=== PATIENT | female | born 1975 | race Caucasian/White ===

== ENCOUNTER 2020-10-31 14:53 | Emergency (ER) | payer SELFPAY ==
[2020-10-31 14:54] VITALS: BP 112/75; PULSE 84; RESP 16; TEMP 36.9; O2SAT 98; BMI 25.1
--- NOTE | 2020-10-31 15:11 | CT_ITS ---
WS: [id number] CT ABDOMEN AND PELVIS WITH CONTRAST HISTORY: diffuse abdominal pain, guarding TECHNIQUE: Imaging performed of the abdomen and pelvis with IV contrast. Single phase imaging of the abdomen. Coronal and sagittal reformats are submitted. All CT scans at [facility] use at least one of these dose optimization techniques: automated exposure control; mA and/or kV adjustment per patient size (includes targeted exams where dose is matched to clinical indication); or iterativ e reconstruction. IV CONTRAST: Omnipaque 300; 95 mL IV. Oral contrast: No DLP: 435.23 mGy.cm COMPARISON: None available. Lower thorax: Lung bases are clear. Heart is normal size. No hiatal hernia. Liver/biliary system: Normal size with no intrahepatic dilatation. Gallbladder: Status post cholecystectomy. Pancreas: Normal. Spleen: Normal. Adrenal glands: Normal. Right kidney: Normal. Left kidney: Normal. Aorta: Mild atherosclerosis with no aneurysm. Lymphadenopathy: None. Free fluid: None. GI tract: Prior appendectomy. There is no GI tract obstruction. Mild diffuse constipation. Abdominal wall: There is a defect within the ventral abdominal wall just above the umbilicus. The benoit fice of the hernia measures 1.7 cm transversely. The omental fat herniating through the defect contai ns thin reticulations and stranding but no fluid. Pelvis: Well-distended bladder. No free fluid. Prior hysterectomy. LEFT ovarian cyst measures 3.0 x 2 .7 cm. Bones: Unremarkable. CT/CT abdomen pelvis w con* [id number] IMPRESSION: 1. Supraumbilical hernia contains herniated omentum. Acute inflammatory change s within the herniated omentum, suspect there is ongoing inflammation or mild i schemic change. Typically this is self limiting. No herniated GI tract. 2. Prior cholecystectomy and appendectomy. 3. LEFT ovarian cyst 3.0 cm.
--- NOTE | 2020-10-31 15:11 | W.ED.ABDPA2 ---
HPI - Abdominal Pain General: Chief Complaint: Abdominal Pain Stated Complaint: ABD PAIN Time Seen by Provider: 10/31/20 14:57 Source: patient Mode of arrival: EMS Limitations: no limitations History of Present Illness: HPI narrative: Patient is a 45-year-old female who presents to ED today with a complaint of severe abdominal pain that initially started approximately 3 days ago and has worsened over that time period. She is complaining of nausea without vomiting. She has not noticed any changes to her bowel movements. She is complaining of painful urination. She does endorse flank pain when asked. No documented fevers but states she has had chills. Previous abdominal surgeries include appendectomy, cholecystectomy, partial hysterectomy. Denies vaginal bleeding, vaginal discharge, vaginal odor. MD elicited complaint: abdominal pain Onset (ago): day(s) Pain Consistency: constant Location: Diffuse and Periumbilical Severity: severe Radiation: none Migration to: no migration Relieving factors: nothing Associated Symptoms: Reports chills, dysuria and nausea; Denies change in bowel habits, change in stool character, constipation, diarrhea, fever(s), hematochezia, hematuria, hematemesis, melena, syncope and vomiting Related Data: Patient : No Review of Systems Const: Reports: chills; Denies: fever(s), body aches, fatigue or malaise ENMT: Denies: throat pain or odynophagia Card: Denies: chest pain, lightheadedness, syncope or pre-syncope Resp: Denies: dyspnea GI: Reports: abdominal pain and nausea; Denies: vomiting, hematemesis, diarrhea, constipation, change in bowel habits, change in stool character, hematochezia, melena or white/light colored stool : Reports: flank pain and dysuria; Denies: difficulty voiding, urinary frequency, urinary urgency, urinary hesitancy, hematuria, vaginal odor, vaginal bleeding or vaginal discharge Musc: Denies: neck pain or back pain Skin/Breast: Denies: rash Neuro: Denies: headache(s), numbness in extremities, weakness in extremities, sensory changes or dizziness Physical Exam Const: COMMON NORMALS: average body habitus, patient oriented x3, no limitations, healthy appearing, alert and well nourished GENERAL APPEARANCE: cooperative and in distress (in pain) ORIENTATION/CONSCIOUSNESS: Yes awake, Yes oriented to person, Yes oriented to place and Yes oriented to time HENMT: COMMON NORMALS: normocephalic and atraumatic HEAD & SCALP: normocephalic and atraumatic Resp: COMMON NORMALS: normal respiratory effort and clear to auscultation bilaterally AUSCULTATION: clear to auscultation bilaterally Cardio: COMMON NORMALS: regular rate and regular rhythm RATE: regular rate RHYTHM: regular rhythm GI: COMMON NORMALS: Normal to inspection, nondistended, normoactive bowel sounds present, No hepatosplenomegaly present and no masses INSPECTION: Yes normal to inspection AUSCULTATION: Yes normoactive bowel sounds PALPATION: Yes Tenderness to palpation present (GI) (diffuse), Yes Guarding due to palpation present (GI) (diffuse) and Yes No hepatosplenomegaly present : BLADDER/KIDNEY EXAM: Yes CVA tenderness bilateral Back/Pelvis: GENERAL BACK: Yes CVA tenderness Extremity: GENERAL: Yes normal exam except as noted Neuro: GIANCARLO COMA SCALE: document GCS findings Giancarlo coma scale eye opening: Spontaneous [place] coma scale verbal response: Orientated Giancarlo coma scale motor response: Obey commands [place] coma scale total score: 15 COMMON NORMALS: patient oriented x3 SENSORIUM/ORIENTATION: Yes alert, Yes oriented to person, Yes oriented to place and Yes oriented to time Skin: COMMON NORMALS: no rashes or lesions noted GENERAL SKIN EXAM: no rashes or lesions noted Course Consultations: Consultation #1: Dr. Medel-will see in office on Thursday Vital Signs: Vital signs: Vital Signs Temperature 98.5 F 10/31/20 14:54 Pulse Rate 69 10/31/20 15:59 Respiratory Rate 14 10/31/20 15:59 Blood Pressure 130/81 10/31/20 15:59 Pulse Oximetry 100 10/31/20 15:59 MDM - Abdominal Pain MDM Narrative: Medical decision making narrative: Patient here with complaints of abdominal pain over the past 3 days. On exam she is diffusely tender but more so to her periumbilical region where a hernia is palpated. She states hernia has been present over the past 2 years and is never been reducible. CT shows herniated omentum. Patient is not tachycardic or febrile. She has a normal white count. Lactate is normal. I have spoken to general surgery who will see patient on Thursday. On patient's UA she was noted to have trichomonas. Patient does not complain of pelvic pain, vaginal discharge, vaginal odor or itching. She has no evidence for PID at this time. Patient does not want pelvic exam/swabs. Strict return to ED precautions were given regarding patient's hernia. Patient also noted to be hyperglycemic with a blood glucose of 325. Patient states she chronically runs in the 200s. She has no evidence for DKA. Lab Data: Labs: Lab Results 10/31/20 10/31/20 10/31/20 Range/Units 15:00 15:00 15:00 WBC 9.3 (4.0-10.0) 10^3/ uL RBC 5.05 (4.1-5.3) 10^6/u L Hgb 15.3 (11.5-15.3) g/dL Hct 45.5 (37.0-47.0) % MCV 90.1 (81-99) fL MCH 30.3 (28.0-34.0) pg MCHC 33.6 (30.0-36.0) g/dL RDW 11.9 L (12.1-15.1) % Plt Count 285 (130-400) 10^3/c mm MPV 10.7 H (7.4-10.4) fL Neut % (Auto) 65.4 % Lymph % (Auto) 25.0 % [place] % (Auto) 7.3 % Eos % (Auto) 1.2 % Baso % (Auto) 0.6 % Neut # (Auto) 6.09 (1.8-7.7) 10^3/u L Lymph # (Auto) 2.3 (0.8-4.8) 10^3/u L [place] # (Auto) 0.7 (0.2-0.9) 10^3/u L Eos # (Auto) 0.1 (0.0-0.8) 10^3/u L Baso # (Auto) 0.1 (0.0-0.1) 10^3/u L Nucleated RBC % (a uto) 0 % Nucleated RBCs # 0.0 /100WBC Specimen Type Sample Site ABG pH (7.35-7.45) ABG pCO2 (35-45) mmHg ABG pO2 (80.0-100.0) mmH g ABG HCO3 (22-26) mmol/L ABG O2 Saturation ABG Base Excess (-2.0-2.0) mmol/ L Marcial Test A-a O2 Gradient (5-10) mmHg Hematocrit (37-47) % Hgb O2 Saturation (95-100) % Carboxyhemoglobin (0.4-20.1) %THgb Methemoglobin (0.4-1.5) % Total Hemoglobin (12-16) g/dL Ionized Calcium (1.1-1.4) mmol/L O2 Delivery Device FiO2 % Recruitment Consultant ID Sodium 133 L (136-145) mmol/L Potassium 4.7 (3.5-5.1) mmol/L Chloride 97 L (98-107) mmol/L Carbon Dioxide 26 (22-29) mmol/L Anion Gap 14.7 (5-19) BUN 13 (6-20) mg/dL Creatinine 0.6 (0.5-0.9) mg/dL GFR Calculation 108.1 (90-130) mL/min Glucose 325 H (65-115) mg/dL Calculated Osmolal ity 289 (285-295) mOsm/k g Lactic Acid (0.5-2.2) mmol/L Calcium 10.2 (8.5-10.5) mg/dL Total Bilirubin 0.4 (0.15-1.2) mg/dL AST 12 (0-32) U/L ALT 13 (0-33) U/L Alkaline Phosphata se 105 (35-105) IU/L Total Protein 7.7 (6.6-8.7) g/dL Albumin 4.3 (3.5-5.2) g/dL Globulin 3.4 (1.3-4.6) g/dL Lipase 14 (13-60) U/L HCG, Qual Negative (Negative) Urine Color (Yellow) Urine Appearance (CLEAR) Urine pH (5-7) Ur Specific Gravit y (1.005-1.030) Urine Protein (Negative) Urine Glucose (UA) (Normal) Urine Ketones (Negative) Urine Blood (Negative) Urine Nitrate (Negative) Urine Bilirubin (Negative) Urine Urobilinogen (Negative) mg/dL Ur Leukocyte Sada ase (Negative) Urine RBC (0-2) /hpf Urine WBC (0-5) /hpf Ur Squamous Epith Cells (0-5) /hpf Amorphous Sediment Urine Bacteria (NONE) /hpf Urine Trichomonas /hpf Serum Ketones (Negative) 10/31/20 10/31/20 10/31/20 Range/Units 15:40 15:58 15:58 WBC (4.0-10.0) 10^3/ uL RBC (4.1-5.3) 10^6/u L Hgb (11.5-15.3) g/dL Hct (37.0-47.0) % MCV (81-99) fL MCH (28.0-34.0) pg MCHC (30.0-36.0) g/dL RDW (12.1-15.1) % Plt Count (130-400) 10^3/c mm MPV (7.4-10.4) fL Neut % (Auto) % Lymph % (Auto) % [place] % (Auto) % Eos % (Auto) % Baso % (Auto) % Neut # (Auto) (1.8-7.7) 10^3/u L Lymph # (Auto) (0.8-4.8) 10^3/u L [place] # (Auto) (0.2-0.9) 10^3/u L Eos # (Auto) (0.0-0.8) 10^3/u L Baso # (Auto) (0.0-0.1) 10^3/u L Nucleated RBC % (a uto) % Nucleated RBCs # /100WBC Specimen Type Sample Site ABG pH (7.35-7.45) ABG pCO2 (35-45) mmHg ABG pO2 (80.0-100.0) mmH g ABG HCO3 (22-26) mmol/L ABG O2 Saturation ABG Base Excess (-2.0-2.0) mmol/ L Marcial Test A-a O2 Gradient (5-10) mmHg Hematocrit (37-47) % Hgb O2 Saturation (95-100) % Carboxyhemoglobin (0.4-20.1) %THgb Methemoglobin (0.4-1.5) % Total Hemoglobin (12-16) g/dL Ionized Calcium (1.1-1.4) mmol/L O2 Delivery Device FiO2 % Recruitment Consultant ID Sodium (136-145) mmol/L Potassium (3.5-5.1) mmol/L Chloride (98-107) mmol/L Carbon Dioxide (22-29) mmol/L Anion Gap (5-19) BUN (6-20) mg/dL Creatinine (0.5-0.9) mg/dL GFR Calculation (90-130) mL/min Glucose (65-115) mg/dL Calculated Osmolal ity (285-295) mOsm/k g Lactic Acid 1.0 (0.5-2.2) mmol/L Calcium (8.5-10.5) mg/dL Total Bilirubin (0.15-1.2) mg/dL AST (0-32) U/L ALT (0-33) U/L Alkaline Phosphata se (35-105) IU/L Total Protein (6.6-8.7) g/dL Albumin (3.5-5.2) g/dL Globulin (1.3-4.6) g/dL Lipase (13-60) U/L HCG, Qual (Negative) Urine Color Straw (Yellow) Urine Appearance Sl hazy (CLEAR) Urine pH 6.5 (5-7) Ur Specific Gravit y 1.010 (1.005-1.030) Urine Protein Neg (Negative) Urine Glucose (UA) 4+ H (Normal) Urine Ketones Negative (Negative) Urine Blood Trace H (Negative) Urine Nitrate Negative (Negative) Urine Bilirubin Neg (Negative) Urine Urobilinogen Norm (Negative) mg/dL Ur Leukocyte Sada ase Negative (Negative) Urine RBC 5-10 H (0-2) /hpf Urine WBC 0-4 H (0-5) /hpf Ur Squamous Epith Cells 0-4 H (0-5) /hpf Amorphous Sediment Not Reportable Urine Bacteria 4+ H (NONE) /hpf Urine Trichomonas 1+ H /hpf Serum Ketones Negative (Negative) 10/31/20 Range/Units 16:03 WBC (4.0-10.0) 10^3/ uL RBC (4.1-5.3) 10^6/u L Hgb (11.5-15.3) g/dL Hct (37.0-47.0) % MCV (81-99) fL MCH (28.0-34.0) pg MCHC (30.0-36.0) g/dL RDW (12.1-15.1) % Plt Count (130-400) 10^3/c mm MPV (7.4-10.4) fL Neut % (Auto) % Lymph % (Auto) % [place] % (Auto) % Eos % (Auto) % Baso % (Auto) % Neut # (Auto) (1.8-7.7) 10^3/u L Lymph # (Auto) (0.8-4.8) 10^3/u L [place] # (Auto) (0.2-0.9) 10^3/u L Eos # (Auto) (0.0-0.8) 10^3/u L Baso # (Auto) (0.0-0.1) 10^3/u L Nucleated RBC % (a uto) % Nucleated RBCs # /100WBC Specimen Type Arterial Sample Site Brachial, right ABG pH 7.37 (7.35-7.45) ABG pCO2 43.2 (35-45) mmHg ABG pO2 76.7 L (80.0-100.0) mmH g ABG HCO3 25.0 (22-26) mmol/L ABG O2 Saturation 96.4 ABG Base Excess -0.4 (-2.0-2.0) mmol/ L Marcial Test Pos A-a O2 Gradient 2.5 L (5-10) mmHg Hematocrit 40.8 (37-47) % Hgb O2 Saturation 88.5 L (95-100) % Carboxyhemoglobin 7.3 (0.4-20.1) %THgb Methemoglobin 0.9 (0.4-1.5) % Total Hemoglobin 13.3 (12-16) g/dL Ionized Calcium 1.2 (1.1-1.4) mmol/L O2 Delivery Device Room air FiO2 21.0 % Recruitment Consultant ID [place] Sodium 135.0 (136-145) mmol/L Potassium 4.2 (3.5-5.1) mmol/L Chloride (98-107) mmol/L Carbon Dioxide (22-29) mmol/L Anion Gap (5-19) BUN (6-20) mg/dL Creatinine (0.5-0.9) mg/dL GFR Calculation (90-130) mL/min Glucose 247.0 H (65-115) mg/dL Calculated Osmolal ity (285-295) mOsm/k g Lactic Acid (0.5-2.2) mmol/L Calcium (8.5-10.5) mg/dL Total Bilirubin (0.15-1.2) mg/dL AST (0-32) U/L ALT (0-33) U/L Alkaline Phosphata se (35-105) IU/L Total Protein (6.6-8.7) g/dL Albumin (3.5-5.2) g/dL Globulin (1.3-4.6) g/dL Lipase (13-60) U/L HCG, Qual (Negative) Urine Color (Yellow) Urine Appearance (CLEAR) Urine pH (5-7) Ur Specific Gravit y (1.005-1.030) Urine Protein (Negative) Urine Glucose (UA) (Normal) Urine Ketones (Negative) Urine Blood (Negative) Urine Nitrate (Negative) Urine Bilirubin (Negative) Urine Urobilinogen (Negative) mg/dL Ur Leukocyte Sada ase (Negative) Urine RBC (0-2) /hpf Urine WBC (0-5) /hpf Ur Squamous Epith Cells (0-5) /hpf Amorphous Sediment Urine Bacteria (NONE) /hpf Urine Trichomonas /hpf Serum Ketones (Negative) Imaging Data ^: CT Abd/Pel: Radiologist's impression: [place] [address] CT Scan Report Signed Patient: Kari Pires Unit #: [id number] : 1975 Age/Sex: 45 / F ADM Date: 10/31/20 Loc: ER Room/Bed: Attending Dr: Ordering Provider/Ordering MD: Yamini Story Date of Service: 10/31/20 Procedure(s): CT abdomen pelvis w con* [id number] Accession Number(s): [id number] Report Number: [id number] WS: [id number] CT ABDOMEN AND PELVIS WITH CONTRAST HISTORY: diffuse abdominal pain, guarding TECHNIQUE: Imaging performed of the abdomen and pelvis with IV contrast. Single phase imaging of the abdomen. Coronal and sagittal reformats are submitted. All CT scans at [facility] use at least one of these dose optimization techniques: automated exposure control; mA and/or kV adjustment per patient size (includes targeted exams where dose is matched to clinical indication); or iterative reconstruction. IV CONTRAST: Omnipaque 300; 95 mL IV. Oral contrast: No DLP: 435.23 mGy.cm COMPARISON: None available. Lower thorax: Lung bases are clear. Heart is normal size. No hiatal hernia. Liver/biliary system: Normal size with no intrahepatic dilatation. Gallbladder: Status post cholecystectomy. Pancreas: Normal. Spleen: Normal. Adrenal glands: Normal. Right kidney: Normal. Left kidney: Normal. Aorta: Mild atherosclerosis with no aneurysm. Lymphadenopathy: None. Free fluid: None. GI tract: Prior appendectomy. There is no GI tract obstruction. Mild diffuse constipation. Abdominal wall: There is a defect within the ventral abdominal wall just above the umbilicus. The orifice of the hernia measures 1.7 cm transversely. The omental fat herniating through the defect contains thin reticulations and stranding but no fluid. Pelvis: Well-distended bladder. No free fluid. Prior hysterectomy. LEFT ovarian cyst measures 3.0 x 2.7 cm. Bones: Unremarkable. CT/CT abdomen pelvis w con* [id number] IMPRESSION: 1. Supraumbilical hernia contains herniated omentum. Acute inflammatory changes within the herniated omentum, suspect there is ongoing inflammation or mild ischemic change. Typically this is self limiting. No herniated GI tract. 2. Prior cholecystectomy and appendectomy. 3. LEFT ovarian cyst 3.0 cm. Dictated By: Bee Gayle DO Signed By: Bee Gayle DO Signed Date/Time: 10/31/20 1535 DD/ 1528 Discharge Plan Discharge Patient Disposition: Home Clinical Impression: Trichomonas vaginitis Umbilical hernia Qualifiers: Obstruction and gangrene presence: without obstruction or gangrene Qualified Code(s): K42.9 - Umbilical hernia without obstruction or gangrene Uncontrolled diabetes mellitus Qualifiers: Diabetes mellitus type: type 2 Glycemic state: with hyperglycemia Qualified Code(s): E11.65 - Type 2 diabetes mellitus with hyperglycemia Condition: Stable Prescriptions: New hydrocodone-acetaminophen 5-325 mg tablet 1 tab PO Q6H PRN (Reason: pain) Qty: 20 RF: 0 Zofran 4 mg tablet 4 mg PO Q6H PRN (Reason: nausea and vomiting) Qty: 14 RF: 0 Flagyl 500 mg tablet 500 mg PO BID 7 Days Qty: 14 RF: 0 No Action Prozac 40 mg Capsule 40 mg PO QAM RF: 0 aspirin 325 mg Tablet 325 mg PO QAM RF: 0 clonazepam 1 mg Tablet 1 mg PO BID PRN (Reason: Anxiety) RF: 0 lisinopril 10 mg Tablet 10 mg PO QAM RF: 0 metoprolol tartrate 50 mg Tablet 50 mg PO QAM RF: 0 Lantus Solostar U-100 Insulin 100 unit/mL (3 mL) Insulin Pen 20 unit SUBCUT QAM RF: 0 Discharge Orders: Discharge ED (Routine); Ordered 10/31/20 Ordered By: Yamini Story Referrals: Yuri Medel MD [Physician] - Patient Instructions: Umbilical Hernia (ED), Trichomoniasis - Female Activity Restrictions/Additional Instructions: As discussed case management should contact you tomorrow to set you up with your appointment with Dr. Medel/general surgery on Thursday for evaluation of your hernia. You need to return to the emergency department immediately for worsening or severe pain, vomiting, inability to pass stool or gas, fevers, or any other concerns you may have. As we discussed your urine showed trichomonas which is a sexually transmitted infection. You have been given medication to clear this infection. You need to abstain from sexual activity until treatment is complete. Any sexual partners need to be tested and treated at this time as well. Coding Level of Care Code ED [employer] Supervisor for Rosemarie Fwestefany Exam Comprehensive
[2020-10-31 15:16] LABS: Basophils # 0.1 10^3/uL (0.0-0.1); Basophils % 0.6 %; Eosinophils # 0.1 10^3/uL (0.0-0.8); Eosinophils % 1.2 %; Hematocrit 45.5 % (37.0-47.0); Hemoglobin 15.3 g/dL (11.5-15.3); Lymphocytes # 2.3 10^3/uL (0.8-4.8); Mean Corpuscular HGB Conc 33.6 g/dL (30.0-36.0); Mean Corpuscular Hemoglobin 30.3 pg (28.0-34.0); Mean Corpuscular Volume 90.1 fL (81-99); Mean Platelet Volume 10.7 fL (7.4-10.4); Monocytes # 0.7 10^3/uL (0.2-0.9); Monocytes % 7.3 %; Neutrophils # 6.09 10^3/uL (1.8-7.7); Neutrophils % 65.4 %; Nucleated Red Blood Cells % 0 %; Platelet Count 285 10^3/cmm (130-400); Red Blood Count 5.05 10^6/uL (4.1-5.3); Red Cell Distribution Width 11.9 % (12.1-15.1); White Blood Count 9.3 10^3/uL (4.0-10.0)
[2020-10-31] MEDS: iohexol 300 mg/mL 100 mL Btl IV (15:25)
[2020-10-31 15:40] LABS: Alanine Aminotransferase 13 U/L (0-33); Albumin Level 4.3 g/dL (3.5-5.2); Alkaline Phosphatase 105 IU/L (35-105); Anion Gap 14.7 (5-19); Aspartate Amino Transferase 12 U/L (0-32); Blood Urea Nitrogen 13 mg/dL (6-20); Calcium 10.2 mg/dL (8.5-10.5); Carbon Dioxide 26 mmol/L (22-29); Chloride 97 mmol/L (98-107); Globulin 3.4 g/dL (1.3-4.6); Glomerular Filtration Rate 108.1 mL/min (90-130); Glucose 325 mg/dL (65-115); Lipase 14 U/L (13-60); Osmolality Calculated 289 mOsm/kg (285-295); Potassium 4.7 mmol/L (3.5-5.1); Sodium 133 mmol/L (136-145); Total Bilirubin 0.4 mg/dL (0.15-1.2); Total Protein 7.7 g/dL (6.6-8.7)
[2020-10-31] MEDS: morphine 4 mg/mL SDV 1 mL IVP (15:40)
[2020-10-31] MEDS: ondansetron 2 mg/ML SDV 2 mL 4 MG IVP (15:40)
[2020-10-31 15:43] LABS: HCG, Serum Qual Negative (Negative)
--- NOTE | 2020-10-31 15:43 | PC.PHAR ---
pt states she takes lantus 20 units qam-pt states her dad [facility] and uses the same as him so she has been using his insulin-pt states she has clonazepam and only takes prn-pt states she has maybe taken 2 tab this week
[2020-10-31 15:59] VITALS: BP 130/81; PULSE 69; RESP 14; O2SAT 100
[2020-10-31 16:10] LABS: Urine Appearance SL Hazy (CLEAR); Urine Color Straw (Yellow); pH Urine 6.5 (5-7)
[2020-10-31 16:11] LABS: Add Urine Microscopic? YES; Bilirubin Urine Neg (Negative); Blood Urine Trace (Negative); Glucose Urine UA 4+ (Normal); Ketones Urine Negative (Negative); Leukocyte Esterase Urine Negative (Negative); Nitrate Urine Negative (Negative); Protein Urine Neg (Negative); Urobilinogen Urine Norm (Negative)
[2020-10-31 16:17] LABS: ABG PCO2 43.2 mmHg (35-45); ABG PH Result 7.37 (7.35-7.45); Alveolar-Arterial Oxygen Gradi 2.5 mmHg (5-10); Arterial Blood Gas Hematocrit 40.8 % (37-47); Base Excess ABG -0.4 mmol/L (-2.0-2.0); Blood Gas Allen Test Pos; Blood Gas Operator Identificat MONRO; Blood Gas Sample Site Brachial, right; Blood Gas Sample Type Arterial; Carboxyhemoglobin 7.3 %THgb (0.4-20.1); HGB O2 Sat 88.5 % (95-100); Ionized Calcium Level - ABG 1.2 mmol/L (1.1-1.4); Methemoglobin 0.9 % (0.4-1.5); Oxygen Device ROOM AIR; Oxygen Saturation ABG 96.4; PO2 ABG 76.7 mmHg (80.0-100.0); Potassium Level - ABG 4.2 mmol/L (3.5-5.0); Total Hemoglobin 13.3 g/dL (12-16)
[2020-10-31 16:29] LABS: Bacteria Urine 4+ /hpf; Squamous Epithelial Cell Urine 0-4 /hpf (0-5); Trichomonas Urine 1+ /hpf; WBC Urine 0-4 /hpf (0-5)
[2020-10-31 16:31] LABS: Add Urine Culture? Yes
[2020-10-31 16:41] LABS: Ketone (Acetest) Serum Negative (Negative)
--- NOTE | 2020-11-01 09:47 | DCPLANNER ---
manager search engine had message to schedule a follow up appointment for patient with general surgery. manager search engine emailed patients information to both Wanda and Greta at [facility] General Surgery. Patients information will be printed and reviewed. Clinic will call patient with appointment information.
--- NOTE | 2020-11-06 12:57 | DCPLANNER ---
Patient has follow up appointment on 11/06/[address] Medel
--- NOTE | 2020-11-29 07:59 | DCPLANNER ---
Patient had a follow up appointment scheduled with Dr. Medel at [facility] General Surgery - patient did attend appointment.
== END 2020-10-31 17:19 | disposition home or self-care (01) ==
PROVIDERS: Emergency Provider Physician Assistant
DX: K42.9 Umbilical hernia without obstruction or gangrene (principal); E11.65 Type 2 diabetes mellitus with hyperglycemia; A59.01 Trichomonal vulvovaginitis
CPT/HCPCS: 12345; 36415; 36600; 74177; 80051; 80053; 81001; 82009; 82330; 82805; 83605; 83690; 84703; 85025; 87077; 87086; 87186; 96361; 96374; 96375; 99282; 99283; J2270; J2405; Q9967

== ENCOUNTER → 2020-11-09 09:41 | Outpatient (BNVA) | payer SELFPAY | PROVIDERS: Referring Provider Surgery; Visit Provider Surgery | DX: Z01.812 Encounter for preprocedural laboratory examination (principal); K42.9 Umbilical hernia without obstruction or gangrene | CPT/HCPCS: 87635 ==

== ENCOUNTER 2020-11-14 06:10 | Day surgery (SDC) | payer SELFPAY ==
[2020-11-13 12:50] VITALS: BMI 24.7
[2020-11-14] VITALS (9 sets, daily range): BP systolic 105–151; BP diastolic 57–89; PULSE 58–90; RESP 12–18; TEMP 36.2–36.3; O2SAT 97–100
--- NOTE | 2020-11-14 06:38 | ANES.PREANE2 ---
Pre-Anesthetic Assessment Pre-Anesthetic Assessment: Height/Weight: Height 1.6 m Weight 63.503 kg Temp Pulse Resp BP Pulse Ox 97.3 F L 58 L 16 106/66 99 11/14/20 06:25 11/14/20 06:25 11/14/20 06:25 11/14/20 06:25 11/14/20 06:25 Preop Diagnosis: Umbilical hernia Proposed Procedure: Operation Date: 11/14/20 07:00 Proposed Procedures p Umbilical Hernia Repair w/ Mesh 38465 K42.9(Not Applicable) - Yuri Medel MD Familial anesthetic complications: None Was Beta Sindy taken within 24 hours: Yes Last intake: Intake Last Liquid Date 11/13/20 Last Liquid Time 23:55 Last Solid Date 11/13/20 Last Solid Time 22:00 Social: Social History: Tobacco and No alcohol Exam: Pre-Anes Outpt Exam: alert, oriented x 3, clear to auscultation bilaterally and regular rate & rhythm Airway: Cervical ROM: WNL MP: 3 Dentition: Loose (back bottom tooth - pt educated on risk of dislodgement w/ intbuation) CV/HEM: CV/HEM: HTN Metabolic: Metabolic: DM Anesthetic Plan: ASA status: 3 Anesthesia: General PFSH Anesthesia PFSH: Medical History (Updated 11/08/20 @ 00:00 by ) Anxiety and depression HTN (hypertension), benign IDDM (insulin dependent diabetes mellitus) Surgical History (Updated 11/02/20 @ 10:25 by Yuri Medel MD) History of appendectomy History of laparoscopic cholecystectomy History of partial hysterectomy Data Anesthesia Cardiac Studies: No Data to Display
[2020-11-14] MEDS: sodium chloride 0.9% 1,000 ML 30 ML IV (06:59)
[2020-11-14 07:00] LABS: Glucose Point of Care 212 mg/dL (70-110)
[2020-11-14] MEDS: insulin regular-human 100 units/1 mL 10 UNIT IVP (07:17)
--- NOTE | 2020-11-14 07:27 | W.PM.OPSUD ---
Surgery/Procedure H&P Update DATE OF PROCEDURE: November 14, 2020 DATE H&P PERFORMED: 11/02/20 H&P UPDATE INFORMATION: I have reviewed H&P completed within last 30 days, I have examined patient prior to procedure and No changes to prior documentation PREOP DIAGNOSIS: Umbilical hernia PLANNED PROCEDURE: Operation Date: 11/14/20 07:00 Proposed Procedures p Umbilical Hernia Repair w/ Mesh [id number] K42.9(Not Applicable) - Yuri Medel MD
--- NOTE | 2020-11-14 08:22 | P.PCN_ITS ---
PACU note PACU note: VSS, Good respiratory effort, report to DEPARTMENT CHAIRPERSON Post-Anesthesia Exam: awake
--- NOTE | 2020-11-14 08:22 | PM.PACU ---
PACU note PACU note: VSS, Good respiratory effort, report to INSTALLATION TECHNICIAN Post-Anesthesia Exam: awake
[2020-11-14] MEDS: fentaNYL 50 mcg/mL INJ 2mL IVP (08:23)
[2020-11-14 08:34] LABS: Glucose Point of Care 92 mg/dL (70-110)
[2020-11-14] MEDS: HYDROcodone-acetaminophen 5-325 mg Tablet 1 TAB PO (09:01)
--- NOTE | 2020-11-14 11:49 | PM.OP ---
Operative Report Date of procedure: November 14, 2020 Pre-op Diagnosis: Incarcerated incisional hernia containing omentum Post-op diagnosis: same Procedure Done: Open primary repair of incarcerated incisional hernia Pathology: Hernia sac and omentum Surgeon: Yuri Medel Anesthesia: General Condition: stable Disposition: PACU Procedure: The patient was taken to the operating room and intubated under general anesthesia after IV antibiotic had been administered. The abdomen was prepped and draped in a sterile manner. A 3 cm transverse incision was made superior to the umbilicus using a 15 blade, a hernial sac dissected out using electrocautery and hemostats. The hernial sac was opened and omentum was reduced into the peritoneal cavity. The hernia sac and part of the omentum was excised. Interrupted sutures using 0 Vicryl was used to close the hernial defect without any tension. The subcutaneous tissue was approximated using 3-0 Vicryl and skin was closed using running subcuticular 4-0 Monocryl sutures. Surgical glue was applied and 10 mL of 0.5% Marcaine was infiltrated around the incision. The patient was stable throughout the procedure.
--- NOTE | 2020-11-14 20:02 | ANE.PACU2 ---
Inpatient post-anesthesia follow up: Airway intact: Yes Vital signs: Temperature 97.1 F Pulse Rate 63 Respiratory Rate 16 Blood Pressure 105/57 Pulse Oximetry 100 Oxygen Delivery Me thod Room Air Oxygen Flow Rate Fraction of Inspir ed Oxygen Hydration adequate: Yes Nausea and vomiting: No Pain level: 3 Mental status: Baseline
== END 2020-11-14 09:19 | disposition home or self-care (01) ==
PROVIDERS: Visit Provider Surgery
PROC: (CPT 49561; principal; 2020-11-14 07:00)
DX: K43.0 Incisional hernia with obstruction, without gangrene (principal); I10 Essential (primary) hypertension; E11.9 Type 2 diabetes mellitus without complications; Z79.82 Long term (current) use of aspirin; Z79.4 Long term (current) use of insulin
CPT/HCPCS: 49561; 36416; 82962; 88302; 96365; 96374; J0690; J1815; J2405; J2704; J2710; J3010; J3490; J7030

== ENCOUNTER → 2020-12-05 10:15 | Outpatient (BNVA) | payer SELFPAY | PROVIDERS: PCP Family Medicine; Visit Provider Emergency Medicine | DX: E11.9 Type 2 diabetes mellitus without complications (principal) | CPT/HCPCS: 36416; 80053; 80061; 82962; 83036; 84443; 85025 ==

== ENCOUNTER → 2021-06-27 16:05 | Outpatient (BNVA) | payer MEDICAID, SELFPAY | PROVIDERS: PCP Family Medicine; Visit Provider Internal Medicine | DX: M79.2 Neuralgia and neuritis, unspecified (principal); E11.9 Type 2 diabetes mellitus without complications | CPT/HCPCS: 82607; 82746; 83516; 83550; 84681; 85651; 86140; 86160; 86162; 86225; 86235; 86255; 86376 ==

== ENCOUNTER → 2021-08-14 15:52 | Outpatient (BNVA) | payer MEDICAID, SELFPAY | PROVIDERS: PCP Family Medicine; Visit Provider Internal Medicine | DX: R20.0 Anesthesia of skin (principal) | CPT/HCPCS: 82607; 82746; 83550; 84443 ==

== ENCOUNTER → 2022-06-17 15:02 | Outpatient (BNVA) | payer BC, MEDICAID, SELFPAY | PROVIDERS: PCP Family Medicine; Visit Provider Internal Medicine | DX: R53.83 Other fatigue (principal); M79.2 Neuralgia and neuritis, unspecified; E13.9 Other specified diabetes mellitus without complications; Z79.899 Other long term (current) drug therapy; Z79.4 Long term (current) use of insulin; F17.210 Nicotine dependence, cigarettes, uncomplicated | CPT/HCPCS: 80053; 82550; 83036; 83550; 84443; 85651; 86140 ==

== ENCOUNTER → 2023-04-23 10:06 | Outpatient (BNVA) | payer BC, MEDICAID, SELFPAY | PROVIDERS: PCP Family Medicine; Visit Provider Student in an Organized Health Care Education/Training Program | DX: G56.03 Carpal tunnel syndrome, bilateral upper limbs (principal); M65.311 Trigger thumb, right thumb | CPT/HCPCS: 73130 ==

== ENCOUNTER 2023-05-18 05:45 | Day surgery (SDC) | payer BC, MEDICAID, SELFPAY ==
[2023-05-18] VITALS (7 sets, daily range): BP systolic 100–128; BP diastolic 64–94; PULSE 80–96; RESP 16–18; TEMP 36.1–36.4; O2SAT 98–100
[2023-05-18] MEDS: sodium chloride 0.9% 1,000 ML 30 ML IV (06:28)
[2023-05-18] MEDS: ketorolac 30 mg/mL INJ IVP (06:29)
[2023-05-18] MEDS: acetaminophen 1,000 MG/100 ML PIGGYBACK 400 MG IV (06:29)
[2023-05-18 06:33] LABS: Glucose Point of Care 154 mg/dL (70-110)
[2023-05-18 06:49] LABS: Anion Gap 15.2 (5-19); Blood Urea Nitrogen 16 mg/dL (6-20); Calcium 9.9 mg/dL (8.5-10.5); Carbon Dioxide 24 mmol/L (22-29); Chloride 103 mmol/L (98-107); Glomerular Filtration Rate 107.2 mL/min (90-130); Glucose 140 mg/dL (65-115); Osmolality Calculated 289 mOsm/kg (285-295); Potassium 4.2 mmol/L (3.5-5.1); Sodium 138 mmol/L (136-145)
--- NOTE | 2023-05-18 06:53 | W.PM.OPSUD ---
Surgery/Procedure H&P Update DATE OF PROCEDURE: May 18, 2023 DATE H&P PERFORMED: 04/23/23 CHANGES TO PREVIOUS DOCUMENTATION: None. No change in HPI from office visit on 04/23/2023. Patient has right carpal tunnel syndrome right trigger thumb. Plan to proceed with surgical intervention all questions answered at this time she understands the risk benefits complication alternatives with surgery and agrees to proceed. All questions answered. PREOP DIAGNOSIS: right Carpal Tunnel syndrome, right thumb trigger PRIMARY INDICATION FOR PROCEDURE: Right carpal tunnel syndrome, right trigger thumb PLANNED PROCEDURE: Operation Date: 05/18/23 07:00 Proposed Procedures p Carpal Tunnel Release/Right Trigger thumb release 09075 ,[id number], G56.03 M65.311(Right) - Yimi Gonzales DO s Trigger Finger Release(Right) - Yimi Gonzales DO
[2023-05-18] MEDS: ceFAZolin 2,000 MG in sodium chloride 0.9% (plus) 50 ML 100 MG IV (07:00)
[2023-05-18] MEDS: ROPivacaine 0.5% SDV 30 mL 50 MG INJECTION (07:10)
[2023-05-18] MEDS: lidocaine-epi 1% 20 mL INJ 5 ML INJECTION (07:10)
--- NOTE | 2023-05-18 08:01 | PM.OP2 ---
Brief Operative Note Date of procedure: 05/18/23 Pre-op diagnosis: Right carpal tunnel syndrome and right trigger thumb Post-op diagnosis: same Procedure Done: Right carpal tunnel release and right trigger thumb release Surgeon: Yimi Gonzales Estimated blood loss (mL): 5 Complications: none Post-op Plan: Orthopedic discharge instructions: Keep dressing clean dry and intact Leave on for 72 hours after surgery, after that may remove dressings clean incision with warm soapy water, pat dry and redress with a dry dressing. No baths or soaks Weightbearing as tolerated to the operative hand Encourage hand and finger range of motion as tolerated Ice and elevate as needed for pain and swelling Take pain medication as prescribed Take antinausea medication as needed Follow-up with Dr. Gonzales in the office in 2 weeks Contact the office for any questions or concerns Condition: stable Disposition: PACU Coding Level of Care Code Acute Code for Rosemarie Nation
--- NOTE | 2023-05-18 08:02 | P.ANESASSM_ITS ---
Pre-Anesthetic Assessment Height/Weight: Height 1.6 m Weight 81.647 kg Temp Pulse Resp BP Pulse Ox O2 Del Method 97.5 F L 88 18 112/75 98 Room Air 05/18/23 06:10 05/18/23 06:10 05/18/23 06:10 05/18/23 06:10 05/18/23 06:10 05/18/23 06:06 Preop Diagnosis: right Carpal Tunnel syndrome, right thumb trigger Operation Date: 05/18/23 07:00 Proposed Procedures p Carpal Tunnel Release/Right Trigger thumb release 83278 ,25992, G56.03 M65.311(Right) - Yimi Christian, DO s Trigger Finger Release(Right) - Yimi Gonzales DO Familial anesthetic complications: none Was Beta Sindy taken within 24 hours: N/A Was Clonidine taken within 24 hours: N/A Last intake: Intake Last Liquid Date 05/17/23 Last Liquid Time 22:00 Last Solid Date 05/17/23 Last Solid Time 22:00 Social Tobacco and No alcohol Exam alert, oriented x 3 and regular rate & rhythm Airway Submandibular: within normal limits Cervical ROM: within normal limits Mallampati: Class II Dentition: chipped Metabolic Diabetes Mellitus and Morbid Obesity Neuropsych Anxiety and Depression Anesthetic Plan ASA status: 3 Anesthesia: Choice Medications/Allergies Home Medications Medication Instructions Recorded Confirmed Last Taken Type aspirin 325 mg tablet 325 mg PO QAM 10/31/20 05/18/23 05/16/23 History insulin glargine 100 unit/mL (3 20 unit (0.2 mL) SUBCUT BID #15 mL 06/17/22 05/18/23 05/17/23 Rx mL) subcutaneous pen (Lantus Solostar U-100 Insulin) insulin aspart U-100 100 unit/mL 10 unit (0.1 mL) SUBCUT TID #15 mL 06/18/22 05/18/23 05/17/23 Rx (3 mL) subcutaneous pen (Novolog FlexPen U-100 Insulin aspart) fluoxetine 40 mg capsule (Prozac) 40 mg PO QAM #30 caps 08/26/22 05/18/23 05/16/23 Rx Diabetic shoes with 3 sets of #1 ea 03/23/23 05/04/23 Unknown Rx insoles ondansetron 4 mg disintegrating 4 mg PO DAILY PRN nausea and 05/18/23 Unknown Rx tablet vomiting 3 days #9 tabs tramadol 50 mg tablet 50 mg PO Q6H PRN pain #20 tabs 05/18/23 Unknown Rx Allergies Allergy/AdvReac Type Severity Reaction Status Date / Time hydrocodone Allergy ALGY-Rash Verified 05/15/23 12:52 Current Medications Generic Name Dose Route Start Last Admin Trade Name Bryant PRN Reason Stop Dose Admin Sodium Chloride 1,000 mls @ 30 mls/hr 05/18/23 06:00 05/18/23 06:28 Sodium Chloride 0.9% IV 05/19/23 05:59 30 mls/hr .Q24H DAVID Administration PFSH Anesthesia Medical History Anxiety and depression Diabetes HTN (hypertension), benign IDDM (insulin dependent diabetes mellitus) Major depressive disorder, recurrent, in full remission Nicotine dependence, cigarettes, uncomplicated Obsessive-compulsive disorder, unspecified Psychiatric care Surgical History History of appendectomy History of laparoscopic cholecystectomy History of partial hysterectomy History of umbilical hernia repair (11/14/20) Social History Smoking and tobacco status: current every day smoker cigarettes Packs smoked per day: 0.5 Years cigarettes smoked: 27 Quit status (tobacco): has tried quititng Number of times tried to quit tobacco: 1 Second hand smoke exposure: Yes Smoking risk assessment/counseling performed?: Yes (risks and benefits discussed/ refused need for TTS at this time) Alcohol intake: current Alcohol intake frequency: few times a month Alcohol type: beer Desire information about alcohol rehabilitation?: No Counseling given: No Reason alcohol counseling not done: not indicated Substance/Drug Use: never Adopted: No Caregiver/support person: No Lives independently: No Household members: spouse and other 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, 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, 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: House Marital status: Number of children: 1 Number of grandchildren: 0 Highest education level completed: Some College, No Degree service: No Current occupational status: unemployed Current occupational exposures/hazards: No Pets and animals: Yes Pets & animals: dog(s) Leisure activites: fishing and other Leisure activities details: swim,crafts Sexually active: No Do you think of yourself as: Straight/Heterosexual Current gender identity: Female Luanne/Sabianism: Shinto Special luanne needs: No Agree to transfusion: Yes Financial difficulty paying for basics: Not Very Hard Female Reproductive History Para: 1 Data Anesthesia 05/18/23 06:24 BMP 05/18/23 06:24 Sodium 138 Potassium 4.2 Chloride 103 Carbon Dioxide 24 BUN 16 Creatinine 0.6 Glucose 140 H Calcium 9.9 Cardiac Studies: No Data to Display
--- NOTE | 2023-05-18 08:04 | PM.PACU ---
PACU note Narrative: Patient is a 47-year-old female just underwent a right carpal tunnel release right trigger thumb release. Patient transferred to PACU in stable condition. Pain is well controlled. Dressing on hand is dry and in place. Patient has good perfusion to her fingers and is able to move fingers. Patient has normal elbow range of motion. Unable to assess sensation due to localized anesthetic. Exam: awake Disposition: discharged
--- NOTE | 2023-05-18 09:00 | PM.OP ---
Operative Report Date of procedure: May 18, 2023 Pre-op diagnosis: Preop Diagnosis right Carpal Tunnel syndrome, right thumb trigger Procedure: Post-op diagnosis: Same Procedure done: 1.?Right carpal tunnel?release 2. Right trigger thumb release Surgeon: Yimi Gonzales DO Anesthesia: MAC (Local) Estimated blood loss: [?2]mL Tourniquet time [14 ]minutes IV fluids: See anesthesia?record Complications: None Findings: See operative?report narrative Condition: stable Disposition: same day Brief History: Patient is a pleasant [?47 ]year-old [F ] with?right carpal tunnel syndrome and right thumb trigger.? Patient has been worked up in the outpatient setting findings and physical examination consistent with this.? Patient nerve conduction studies consistent with carpal tunnel syndrome. Patient's failed conservative treatment for trigger thumb and would like to have this addressed while having her carpal tunnel release.? We detailed out patient's?risk benefits complication alternatives with surgical and nonsurgical treatment options. Through shared decision making, patient agrees to proceed with surgical intervention ? Patient understands and agrees with current plan.? All questions answered.? Procedure: Patient seen and evaluated in the preoperative holding area.? Consent was?reviewed and signed with patient.? Correct extremity was marked.? Patient was seen evaluated by the anesthesia department once cleared for surgery was brought back to the operative suite.? [facility] in supine position all bony prominences were well-padded patient properly secured to the bed.??Right upper extremity was then placed onto an armboard.? A nonsterile tourniquet was applied to the?RIght upper arm.? Patient underwent anesthesia per the anesthesia department.? Patient's?Right upper extremity was then prepped and draped in standard orthopedic fashion.? Final timeout performed.? Patient?received appropriate preoperative antibiotics. Under sterile aseptic technique patient?received local anesthesia over the preplanned carpal tunnel incision site and right trigger thumb incision site Esmarch was used to exsanguinate the?Right upper extremity and tourniquet was insufflated to 250 mmHg. I started with the trigger thumb release. I identified patient's MP flexion crease marked appropriate incision transversely across the flexion crease within Alena's lines sharp scalpel incision was made only through skin.? Once this was done I switched to Littler dissection scissors this I then subsequently spread longitudinally in the planes of the digital nerves.? Once these were identified these were protected by my respiratory care assistant with Kasdan retractors.? Next I identified directly over the A1 ronak of the right thumb.? This was significantly thickened and identified to be the area of patient's thumb?triggering.? I used sharp scalpel to incise the A1 ronak and then utilized my respiratory care assistant to retract the ability and under loupe magnification released the entirety of the A1 ronak both proximally and distally up to the oblique ronak.? This point time the tendon was then inspected and found to be healthy there was some inflammation around the tendon itself but no evidence of tearing and no need for any debridement.? The Ragnell was used to pull the tendon out of the incision and there was no mechanical?triggering I then took the patient's thumb through range of motion no recurrent?triggering was noted.? I then had anesthesia wake patient up from anesthesia and was able to have him follow commands patient was able to make a flex thumb and extend with no evidence of triggering. Patient was then placed back to MAC anesthesia. I then thoroughly irrigated the incision site and placed a wet Ray-Mirta in the incision line proceeded with carpal tunnel release. A standard mini open?Right carpal tunnel incision was made.? Starting distally at Clark's cardinal line in line with the fourth?ray extending proximally distal to the wrist crease centered over the carpal tunnel.? Sharp scalpel incision was made through skin and subcutaneous tissue.? Self-retaining?retractor was placed and the palmar fascia was identified.? This was then split longitudinally and direct visualization of the transverse carpal ligament was then made.? I then utilizing scalpel feathered through the transverse carpal ligament until I entered the floor of the transverse carpal tunnel ligament into the carpal tunnel.? Next I switched to dissection scissors and completed my?release of the transverse carpal ligament distally with care to protect the?recurrent motor branch.? I completely?released into the palmar fat and until no entrapment was noted distally.? Care was made to protect the superficial palmar arch during my distal dissection.?? Next I utilized a nasal speculum placed on top of the transverse carpal ligament and utilize this to?retract the subcutaneous fat and tissue and under direct loupe magnification was able to identify the transverse carpal ligament.? Next I then placed a [place] underneath the transverse carpal tunnel ligament to protect the contents of the carpal tunnel and subsequently utilizing dissection scissors under loupe magnification completely?released the transverse carpal ligament proximally into the median antebrachial fascia.? Care was made to protect the palmar cutaneous branch by keeping my scissors curved ulnarly.? Once completely?released, I then placed my [place] and had appropriate decompression of the carpal tunnel proximally as well as distally.? I then inspected the contents of the carpal tunnel which showed an hourglass shape of the median nerve showing its compression.? No masses were noted.? Tendons appeared healthy.? Incisions were then thoroughly irrigated.? Tourniquet deflated.? Hemostasis satisfactory with bipolar electrocautery.? I then closed the incisions with interrupted nylon stitches.? Xeroform 4 x 4's and a bulky soft dressing was applied.? Patient was then awakened from anesthesia and taken to PACU in stable condition.? Patient tolerated procedure without complications. Disposition: Patient taken to PACU in stable condition?recovering well.? Dressing clean dry and intact.? Patient will?receive appropriate discharge instructions as well as pain medication postoperatively.? Patient to follow-up with me in the office in 2 weeks.? They understand they may be weightbearing as tolerated to the?right hand.? Patient should keep incision clean dry and intact.? Patient understands if any questions or concerns may contact the office.
--- NOTE | 2023-05-18 16:58 | ANE.PACU2 ---
Inpatient post-anesthesia follow up: Airway intact: Yes Vital signs: Temperature 97.2 F Pulse Rate 80 Respiratory Rate 18 Blood Pressure 122/77 Pulse Oximetry 100 Oxygen Delivery Me thod Room Air Oxygen Flow Rate Fraction of Inspir ed Oxygen Hydration adequate: Yes Nausea and vomiting: No Pain level: 1 Mental status: Baseline
== END 2023-05-18 08:45 | disposition home or self-care (01) ==
PROVIDERS: PCP Family Medicine; Visit Provider Student in an Organized Health Care Education/Training Program
PROC: (CPT 64721; principal; 2023-05-18 07:00)
PROC: (CPT 26055; 2023-05-18 07:00)
DX: G56.01 Carpal tunnel syndrome, right upper limb (principal); M65.311 Trigger thumb, right thumb; E11.9 Type 2 diabetes mellitus without complications; E66.01 Morbid (severe) obesity due to excess calories; Z68.31 Body mass index [BMI] 31.0-31.9, adult; Z79.82 Long term (current) use of aspirin; Z79.4 Long term (current) use of insulin; I10 Essential (primary) hypertension; F17.210 Nicotine dependence, cigarettes, uncomplicated
CPT/HCPCS: 26055; 64721; 36415; 36416; 80048; 82962; J0131; J0690; J1885; J2371; J2704; J2795; J3010; J7030

== ENCOUNTER 2023-06-09 06:00 | Outpatient (RCR) | payer BC, MEDICAID, SELFPAY | END 2023-06-27 23:59 | disposition home or self-care (01) | LOC: SOT 06:00 | PROVIDERS: PCP Family Medicine; Visit Provider Student in an Organized Health Care Education/Training Program | DX: M65.311 Trigger thumb, right thumb (principal); G56.03 Carpal tunnel syndrome, bilateral upper limbs; T81.41XA Infection following a procedure, superficial incisional surgical site, initial encounter; Y83.8 Other surgical procedures as the cause of abnormal reaction of the patient, or of later complication, without mention of misadventure at the time of the procedure | CPT/HCPCS: 97110; 97165; 97530; 99024; 99213; L3908 ==

== ENCOUNTER → 2023-07-17 10:25 | Outpatient (BNVA) | payer BC, SELFPAY | PROVIDERS: PCP Family Medicine; Visit Provider Registered Nurse | DX: Z79.899 Other long term (current) drug therapy (principal) | CPT/HCPCS: 80053; 80061; 82306; 82607; 82728; 83036; 83540; 83735; 84443; 85025 ==

== ENCOUNTER 2023-07-30 07:04 | Day surgery (SDC) | payer BC, MEDICAID, SELFPAY ==
[2023-07-23 14:33] VITALS: BP 149/93; BMI 33.5
--- NOTE | 2023-07-29 16:41 | PC.NURSE ---
Pt stated that Dr. Christian freed it was ok to take celebrex and aspirin before surgery. She stated that she did this last time her other wrist was done.
[2023-07-30 07:08] VITALS: BMI 32.4
[2023-07-30] MEDS: sodium chloride 0.9% 1,000 ML 30 ML IV (07:21)
[2023-07-30 07:23] VITALS: BP 98/75; PULSE 78; RESP 18; TEMP 36.3; O2SAT 98
[2023-07-30] MEDS: acetaminophen 1,000 MG/100 ML PIGGYBACK 400 MG IV (07:37)
[2023-07-30 07:38] LABS: Glucose Point of Care 114 mg/dL (70-110)
[2023-07-30] MEDS: ketorolac 30 mg/mL INJ IVP (07:39)
--- NOTE | 2023-07-30 08:10 | P.ANESASSM_ITS ---
Pre-Anesthetic Assessment Height/Weight: Height 1.6 m Weight 83.007 kg Temp Pulse Resp BP Pulse Ox O2 Del Method 97.4 F L 78 18 98/75 98 Room Air 07/30/23 07:23 07/30/23 07:23 07/30/23 07:23 07/30/23 07:23 07/30/23 07:23 07/30/23 07:46 Preop Diagnosis: Left Carpal Tunnel syndrome Operation Date: 07/30/23 08:40 Proposed Procedures p Carpal Tunnel Release(Left) - Yimi Gonzales DO Familial anesthetic complications: None Was Beta Sindy taken within 24 hours: N/A Was Clonidine taken within 24 hours: N/A Last intake: Intake Last Liquid Date 07/29/23 Last Liquid Time 18:00 Last Solid Date 07/29/23 Last Solid Time 18:00 Social Tobacco and No alcohol Exam alert, oriented x 3, clear to auscultation bilaterally and regular rate & rhythm Airway Mallampati: Class II Dentition: chipped Metabolic Diabetes Mellitus Anesthetic Plan ASA status: 3 Anesthesia: MAC Risk of > 500 ml blood loss (7ml/kg in children): No Medications/Allergies Home Medications Medication Instructions Recorded Confirmed Last Taken Type aspirin 325 mg tablet 325 mg PO QAM 10/31/20 07/29/23 07/29/23 History insulin glargine 100 unit/mL (3 20 unit (0.2 mL) SUBCUT BID #15 mL 06/17/22 07/29/23 07/29/23 Rx mL) subcutaneous pen (Lantus Solostar U-100 Insulin) insulin aspart U-100 100 unit/mL 10 unit (0.1 mL) SUBCUT TID #15 mL 06/18/22 07/29/23 07/29/23 Rx (3 mL) subcutaneous pen (Novolog FlexPen U-100 Insulin aspart) Diabetic shoes with 3 sets of #1 ea 03/23/23 07/17/23 Unknown Rx insoles celecoxib 100 mg capsule (Celebrex) 100 mg PO BID 07/17/23 07/29/23 07/29/23 History duloxetine 30 mg capsule,delayed 30 mg PO DAILY #30 caps 07/17/23 07/29/23 07/29/23 Rx release (Cymbalta) Allergies Allergy/AdvReac Type Severity Reaction Status Date / Time hydrocodone Allergy ALGY-Rash Verified 07/29/23 16:35 Current Medications Generic Name Dose Route Start Last Admin Trade Name Bryant PRN Reason Stop Dose Admin Sodium Chloride 1,000 mls @ 30 mls/hr 07/30/23 07:15 07/30/23 07:21 Sodium Chloride 0.9% IV 07/31/23 07:14 30 mls/hr .Q24H DAVID Administration PFSH Anesthesia Medical History Anxiety and depression Diabetes HTN (hypertension), benign IDDM (insulin dependent diabetes mellitus) Major depressive disorder, recurrent, in full remission Nicotine dependence, cigarettes, uncomplicated Obsessive-compulsive disorder, unspecified Psychiatric care Surgical History History of appendectomy History of laparoscopic cholecystectomy History of partial hysterectomy History of umbilical hernia repair (11/14/20) Social History Smoking and tobacco/nicotine status: current every day tobacco/nicotine user cigarettes Packs smoked per day: 0.5 Years cigarettes smoked: 27 Quit status (tobacco/nicotine): has tried quititng Number of times tried to quit tobacco: 1 Second hand smoke exposure: Yes Alcohol intake: current Alcohol intake frequency: few times a month Alcohol type: beer Substance/Drug Use: never Adopted: No Caregiver/support person: No Lives independently: No Household members: spouse and other 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, 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, 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: House Marital status: Number of children: 1 Number of grandchildren: 0 Highest education level completed: Some College, No Degree service: No Current occupational status: unemployed Current occupational exposures/hazards: No Pets and animals: Yes Pets & animals: dog(s) Leisure activites: fishing and other Leisure activities details: swim,crafts Sexually active: No Do you think of yourself as: Straight/Heterosexual Current gender identity: Female Luanne/Voodoo: Evangelical Special luanne needs: No Agree to transfusion: Yes Female Reproductive History Para: 1 Data Anesthesia Cardiac Studies: No Data to Display
--- NOTE | 2023-07-30 08:54 | W.PM.OPSUD ---
Surgery/Procedure H&P Update DATE OF PROCEDURE: July 30, 2023 DATE H&P PERFORMED: 07/07/23 H&P UPDATE INFORMATION: I have reviewed H&P completed within last 30 days, I have examined patient prior to procedure and No changes to prior documentation PREOP DIAGNOSIS: Left Carpal Tunnel syndrome PRIMARY INDICATION FOR PROCEDURE: Left carpal tunnel syndrome PLANNED PROCEDURE: Operation Date: 07/30/23 08:40 Proposed Procedures p Carpal Tunnel Release(Left) - Yimi Gonzales DO
[2023-07-30] MEDS: ceFAZolin 2,000 MG in sodium chloride 0.9% (plus) 50 ML 100 MG IV (09:28)
[2023-07-30] MEDS: ROPivacaine 0.5% SDV 30 mL 25 MG INJECTION (09:55)
[2023-07-30] MEDS: lidocaine-epi 2% 20 mL INJ 5 ML INJECTION (09:55)
--- NOTE | 2023-07-30 10:08 | W.PM.BPON ---
Date of Procedure: 07/30/2023 Surgeon: Yimi Gonzales DO Transitional Care Liaison(s): RONALDO Yepez Procedure(s) performed: Left carpal tunnel release Findings of the procedure(s): Left carpal tunnel syndrome and procedure of release went as planned, no complications Estimated blood loss: 2 mL Specimen(s) removed: None Post-operative diagnosis: Left carpal tunnel syndrome
--- NOTE | 2023-07-30 10:09 | P.OP_ITS ---
Operative Report Date of procedure: July 30, 2023 Pre-op diagnosis: Left Carpal tunnel syndrome Post-op diagnosis: Same Surgeon: Yimi Gonzales DO Procedure: Procedure done: 1. Left carpal tunnel release Surgeon: Yimi Gonzales DO Anesthesia: MAC (Local) Estimated blood loss: [2?]mL Tourniquet time [ 10]minutes IV fluids: See anesthesia record Complications: None Findings: See operative report narrative Condition: stable Disposition: same day Brief History: Patient is a pleasant [?47 ]year-old [Female ] with left carpal tunnel syndrome.? Patient has been worked up in the outpatient setting findings and physical examination consistent with this.? Patient nerve conduction studies consistent with carpal tunnel syndrome.? We detailed out patient's risk benefits complication alternatives with surgical and nonsurgical treatment options. Through shared decision making, patient agrees to proceed with surgical intervention of the left carpal tunnel release .? Patient understands and agrees with current plan.? All questions answered.? Patient elects to proceed with surgical intervention with carpal tunnel release. Procedure: Patient seen and evaluated in the preoperative holding area.? Consent was reviewed and signed with patient.? Correct extremity was marked.? Patient was seen evaluated by the anesthesia department once cleared for surgery was brought back to the operative suite.? Patient was kept on [facility] in supine position all bony prominences were well-padded patient properly secured to the bed.? Left upper extremity was then placed onto an armboard.? A nonsterile tourniquet was applied to the left upper arm.? Patient underwent anesthesia per the anesthesia department.? Patient's left upper extremity was then prepped and draped in standard orthopedic fashion.? Final timeout performed.? Patient received appropriate preoperative antibiotics. Under sterile aseptic technique patient received local anesthesia over the preplanned carpal tunnel incision site. Esmarch was used to exsanguinate the Right upper extremity and tourniquet was insufflated to 250 mmHg. A standard mini open left carpal tunnel incision was made.? Starting distally at Clark's cardinal line in line with the fourth ray extending proximally distal to the wrist crease centered over the carpal tunnel.? Sharp scalpel incision was made through skin and subcutaneous tissue.? Self-retaining retractor was placed and the palmar fascia was identified.? This was then split longitudinally and direct visualization of the transverse carpal ligament was then made.? I then utilizing scalpel feathered through the transverse carpal ligament until I entered the floor of the transverse carpal tunnel ligament into the carpal tunnel.? Next I switched to dissection scissors and completed my release of the transverse carpal ligament distally with care to protect the recurrent motor branch.? I completely released into the palmar fat and until no entrapment was noted distally.? Care was made to protect the superficial palmar arch during my distal dissection.?? Next I utilized a nasal speculum placed on top of the transverse carpal ligament and utilize this to retract the subcutaneous fat and tissue and under direct loupe magnification was able to identify the transverse carpal ligament.? Next I then placed a [place] underneath the transverse carpal tunnel ligament to protect the contents of the carpal tunnel and subsequently utilizing dissection scissors under loupe magnification completely released the transverse carpal ligament proximally into the median antebrachial fascia.? Care was made to protect the palmar cutaneous branch by keeping my scissors curved ulnarly.? Once completely released, I then placed my Martin and had appropriate decompression of the carpal tunnel proximally as well as distally.? I then inspected the contents of the carpal tunnel which showed an hourglass shape of the median nerve showing its compression.? No masses were noted.? Tendons appeared healthy.? Wound was then thoroughly irrigated.? Tourniquet deflated.? Hemostasis satisfactory with bipolar electrocautery.? I then closed the incision with interrupted nylon stitches.? Xeroform 4 x 4's and a bulky soft dressing was applied.? Patient was then awakened from anesthesia and taken to PACU in stable condition.? Patient tolerated procedure without complications. Disposition: Patient taken to PACU in stable condition recovering well.? Dressing clean dry and intact.? Patient will receive appropriate discharge instructions as well as pain medication postoperatively.? Patient to follow-up with me in the office in 2 weeks.? They understand they may be weightbearing as tolerated to the left hand.? Patient should keep incision clean dry and intact.? Patient understands if any questions or concerns may contact the office.
[2023-07-30 10:11] VITALS: BP 87/51; PULSE 81; RESP 16; TEMP 36.3; O2SAT 98
[2023-07-30 10:16] VITALS: BP 90/58; PULSE 76; RESP 18; O2SAT 99
[2023-07-30 10:21] VITALS: BP 105/69; BP 111/63; PULSE 67; PULSE 72; RESP 18; RESP 20; TEMP 36.1; TEMP 36.2; O2SAT 94; O2SAT 99
[2023-07-30 10:44] VITALS: BP 99/69; PULSE 66; RESP 18; O2SAT 97
--- NOTE | 2023-07-30 10:55 | ANE.PACU2 ---
Inpatient post-anesthesia follow up: Airway intact: Yes Vital signs: Temperature 97.2 F Pulse Rate 66 Respiratory Rate 18 Blood Pressure 99/69 Pulse Oximetry 97 Oxygen Delivery Me thod Room Air Oxygen Flow Rate Fraction of Inspir ed Oxygen Hydration adequate: Yes Nausea and vomiting: No Pain level: 1 Mental status: Baseline
== END 2023-07-30 10:55 | disposition home or self-care (01) ==
PROVIDERS: PCP Family Medicine; Visit Provider Student in an Organized Health Care Education/Training Program
PROC: (CPT 64721; principal; 2023-07-30 08:40)
DX: G56.02 Carpal tunnel syndrome, left upper limb (principal); E11.9 Type 2 diabetes mellitus without complications; Z79.82 Long term (current) use of aspirin; Z79.4 Long term (current) use of insulin; I10 Essential (primary) hypertension; F17.210 Nicotine dependence, cigarettes, uncomplicated
CPT/HCPCS: 64721; 36416; 82962; J0131; J0690; J1885; J2704; J2795; J3010; J7030

== ENCOUNTER 2023-09-12 15:07 | Emergency (ER) | payer BC, MEDICAID, SELFPAY ==
[2023-07-23 14:33] VITALS: BP 149/93; BMI 33.5
[2023-09-12 15:10] VITALS: BP 90/67; PULSE 98; RESP 16; TEMP 36.8; O2SAT 99; BMI 31.3
--- NOTE | 2023-09-12 15:12 | XRR_ITS ---
PROCEDURE INFORMATION: Exam: XR Chest Exam date and time: 09/12/2023 3:36 PM Age: 47 years old Clinical indication: Patient HX: Dizziness; Cough; Weakness TECHNIQUE: Imaging protocol: Radiologic exam of the chest. Views: 1 view. COMPARISON: CR XR chest 1V [id number] 09/10/2018 9:25 PM FINDINGS: Lungs: Unremarkable. No consolidation. Pleural spaces: Unremarkable. No pleural effusion. No pneumothorax. Heart/Mediastinum: Unremarkable. No cardiomegaly. Bones/joints: Unremarkable. XR/XR chest 1V portable [id number] IMPRESSION: No acute findings.
--- NOTE | 2023-09-12 15:12 | CTR_ITS ---
PROCEDURE INFORMATION: Exam: CT Head Without Contrast Exam date and time: 09/12/2023 4:10 PM Age: 47 years old Clinical indication: Pain; Headache; Additional info: HEAD TECHNIQUE: Imaging protocol: Computed tomography of the head without contrast. Radiation optimization: All CT scans at this facility use at least one of these dose optimization techniques: automated exposure control; mA and/or kV adjustment per patient size (includes targeted exams where dose is matched to clinical indication); or iterative reconstruction. REPORTING DATA: Count of CT and Cardiac NM exams in prior 12 months: This patient has received 0 known CTs and 0 known cardiac nuclear medicine studies in the 12 months prior to the current study. COMPARISON: No relevant prior studies available. RADIATION DOSE METRICS: Total DLP (mGy-cm): 999.68 FINDINGS: Brain: Normal. No hemorrhage. Unremarkable white matter. No mass effect. Cerebral ventricles: No ventriculomegaly. Paranasal sinuses: Visualized sinuses are unremarkable. No fluid levels. Mastoid air cells: Visualized mastoid air cells are well aerated. Bones/joints: Unremarkable. No acute fracture. Soft tissues: Unremarkable. CT/CT head wo con* [id number] IMPRESSION: No acute intracranial abnormality.
--- NOTE | 2023-09-12 15:18 | ED_ITS ---
HPI - Dizziness 2 General: Chief Complaint: Dizziness Stated Complaint: HEADACHE Time Seen by Provider: 09/12/23 15:09 Source: patient and EMS Mode of arrival: EMS Limitations: no limitations History of Present Illness: HPI Narrative: 47-year-old female who states that over the last 3 to 4 days she has had intermittent headaches along with feeling lightheaded dizzy. States she is also had nausea she also has been feeling depressed. She denies any suicidal ideation. States her headaches currently a 2 out of 10. She denies any fever she had nausea denies vomiting she has had some diarrhea. Associated symptoms: Reports headache(s), malaise and nausea; Denies chest pain, chills or vomiting Review of Systems 2 Const: Reports: fatigue and malaise; Denies: fever(s), chills, body aches or change in appetite Eyes: Denies: blurry vision or eye discomfort ENMT: Denies: throat pain or dental pain Card: Denies: chest pain Resp: Denies: dyspnea GI: Reports: nausea; Denies: abdominal pain, vomiting or diarrhea : Denies: dysuria Musc: Denies: neck pain or back pain Skin/Breast: Denies: rash Neuro: Reports: headache(s) PFSH ED 2 PFSH: Medical History Psychiatric care Diabetes Anxiety and depression IDDM (insulin dependent diabetes mellitus) HTN (hypertension), benign Nicotine dependence, cigarettes, uncomplicated Major depressive disorder, recurrent, in full remission Obsessive-compulsive disorder, unspecified Surgical History History of umbilical hernia repair (11/14/20) History of partial hysterectomy History of laparoscopic cholecystectomy History of appendectomy Social History Smoking and tobacco/nicotine status: current every day tobacco/nicotine user cigarettes Packs smoked per day: 0.5 Years cigarettes smoked: 27 Quit status (tobacco/nicotine): has tried quititng Number of times tried to quit tobacco: 1 Second hand smoke exposure: Yes Alcohol intake: current Alcohol intake frequency: few times a month Alcohol type: beer Substance/Drug Use: never Adopted: No Caregiver/support person: No Lives independently: No Household members: spouse and other 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, 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, 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: House Marital status: Number of children: 1 Number of grandchildren: 0 Highest education level completed: Some College, No Degree service: No Current occupational status: unemployed Current occupational exposures/hazards: No Pets and animals: Yes Pets & animals: dog(s) Leisure activites: fishing and other Leisure activities details: swim,crafts Sexually active: No Do you think of yourself as: Straight/Heterosexual Current gender identity: Female Luanne/Roman Catholic: Mandaen Special luanne needs: No Agree to transfusion: Yes Female Reproductive History: Para: 1 Physical Exam 2 Const: COMMON NORMALS: no acute distress, patient oriented x3 and healthy appearing HENMT: COMMON NORMALS: normocephalic and atraumatic HEAD & SCALP: n ormocephalic and atraumatic Eye: COMMON NORMALS: Equal, round and reactive pupils present and EOMs intact bilaterally PUPIL: Yes Equal, round and reactive pupils present Neck/C-Spine: COMMON NORMALS: full ROM and supple Chest: COMMONS NORMALS: normal inspection of the chest and normal palpation of entire chest wall Resp: COMMON NORMALS: normal respiratory effort, No retractions, No use of accessory muscles and clear to auscultation bilaterally AUSCULTATION: clear to auscultation bilaterally Cardio: COMMON NORMALS: regular rate, regular rhythm and No murmurs present (Cardio) RATE: regular rate RHYTHM: regular rhythm GI: COMMON NORMALS: Soft to palpation, non-tender and no masses PALPATION: Yes Soft to palpation OTHER: Area of erythema to suprapubic region no fluctuance or abscess formation at this time Extremity: COMMON NORMALS: normal to inspection and full ROM Neuro: COMMON NORMALS: patient oriented x3, moves all extremities and no focal motor deficits Psych: COMMON NORMALS: mental status grossly normal, Normal thought process present and cooperative THOUGHT PROCESS: Normal thought process present Skin: COMMON NORMALS: no rashes or lesions noted and no wounds GENERAL SKIN EXAM: no rashes or lesions noted Course 2 Vital Signs: Vital signs: Vital Signs Temperature 98.3 F 09/12/23 15:10 Pulse Rate 98 09/12/23 15:10 Respiratory Rate 16 09/12/23 15:10 Blood Pressure 90/67 09/12/23 15:10 Pulse Oximetry 99 09/12/23 15:10 Oxygen Delivery Me thod Room Air 09/12/23 15:10 MDM - Dizziness Medical Decision Making Patient presents here with headache along with some dizziness she feels much improved here after IV fluids blood works normal head CT is normal she has no signs of a stroke no signs of meningitis she is stable for discharge she is to follow-up with PCP and return if worsening she understands agrees to plan. Medical Records I reviewed the patient's medical records. Lab Data I reviewed the patient's lab results. 09/12/23 15:30 09/12/23 15:30 Radiology Impressions Chest X-Ray 09/12/23 15:12 IMPRESSION: No acute findings. Head CT 09/12/23 15:12 IMPRESSION: No acute intracranial abnormality. Laboratory Results WBC 12.17 10^3/uL (3.29-11.43) H 09/12/23 15:30 RBC 5.18 10^6/uL (3.85-5.65) 09/12/23 15:30 Hgb 14.90 g/dL (11.27-16.99) 09/12/23 15:30 Hct 44.8 % (36-47) 09/12/23 15:30 MCV 86.5 fl (85-98) 09/12/23 15:30 MCH 28.8 pg (27-33) 09/12/23 15:30 MCHC 33.3 g/dL (30-55) 09/12/23 15:30 RDW 12.2 % (12.1-15.1) 09/12/23 15:30 Plt Count 293 10^3/cmm (157-399) 09/12/23 15:30 MPV 9.8 fL (7.4-10.4) 09/12/23 15:30 Neut % (Auto) 68.4 % 09/12/23 15:30 Lymph % (Auto) 21.0 % 09/12/23 15:30 Edgar % (Auto) 9.3 % 09/12/23 15:30 Eos % (Auto) 0.5 % 09/12/23 15:30 Baso % (Auto) 0.4 % 09/12/23 15:30 Neut # (Auto) 8.32 10^3/uL (1.8-7.7) H 09/12/23 15:30 Lymph # (Auto) 2.6 10^3/uL (0.8-4.8) 09/12/23 15:30 Edgar # (Auto) 1.1 10^3/uL (0.2-0.9) H 09/12/23 15:30 Eos # (Auto) 0.1 10^3/uL (0.0-0.8) 09/12/23 15:30 Baso # (Auto) 0.1 10^3/uL (0.0-0.1) 09/12/23 15:30 Nucleated RBC % (auto) 0 % 09/12/23 15:30 Nucleated RBCs # 0.0 /100WBC 09/12/23 15:30 Sodium 136 mmol/L (136-145) 09/12/23 15:30 Potassium 4.0 mmol/L (3.5-5.1) 09/12/23 15:30 Chloride 101 mmol/L (98-107) 09/12/23 15:30 Carbon Dioxide 24 mmol/L (22-29) 09/12/23 15:30 Anion Gap 15.0 (5-19) 09/12/23 15:30 BUN 17 mg/dL (6-20) 09/12/23 15:30 Creatinine 0.8 mg/dL (0.5-0.9) 09/12/23 15:30 GFR Calculation 76.9 mL/min (90-130) L 09/12/23 15:30 Glucose 233 mg/dL (65-115) H 09/12/23 15:30 Calculated Osmolality 291 mOsm/kg (285-295) 09/12/23 15:30 Calcium 10.1 mg/dL (8.5-10.5) 09/12/23 15:30 Total Bilirubin 0.2 mg/dL (0.15-1.2) 09/12/23 15:30 AST 12 U/L (0-32) 09/12/23 15:30 ALT 19 U/L (0-33) 09/12/23 15:30 Alkaline Phosphatase 98 U/L (35-105) 09/12/23 15:30 Total Protein 7.2 g/dL (6.6-8.7) 09/12/23 15:30 Albumin 3.9 g/dL (3.5-5.2) 09/12/23 15:30 Globulin 3.3 g/dL (1.3-4.6) 09/12/23 15:30 All radiology interpretation(s) finalized by discharge EKG Data EKG 1: I personally reviewed and interpreted this EKG as follows: EKG interpretation date: 09/12/23 EKG interpretation time: 15:20 Interpretation: nsr hr [address] or t wave abnormalities qrs 99 qtc 401 Discharge Plan Discharge Patient Disposition: Home Clinical Impression: Dizziness Headache Qualifiers: Headache type: unspecified Headache chronicity pattern: unspecified pattern I ntractability: not intractable Qualified Code(s): R51.9 - Headache, unspecified Condition: Stable Prescriptions: New meclizine 25 mg tablet 25 mg PO BID PRN (Reason: dizziness) Qty: 20 0RF No Action insulin glargine [Lantus Solostar U-100 Insulin] 100 unit/mL (3 mL) insulin pen 20 unit SUBCUT BID Qty: 15 8RF (DME) Diabetic shoes with 3 sets of insoles See Rx Instructions .Route .MEDSUPPLY Qty: 1 0RF Rx Instructions: As directed celecoxib [Celebrex] 100 mg capsule 100 mg PO BID duloxetine 60 mg capsule,delayed release(DR/EC) 60 mg PO DAILY Qty: 30 1RF insulin aspart U-100 [Novolog FlexPen U-100 Insulin] 100 unit/mL (3 mL) insulin pen 10 unit SUBCUT TID MDD 30 units Qty: 15 4RF aspirin 325 mg Tablet 325 mg PO QAM Discharge Orders: Discharge ED (Routine); Ordered 09/12/23 Ordered By: Henrietta Banegas Referrals: Raymond Johnson DO [Primary Care Provider] - Discharge Diet: Advance as tolerated Discharge Activity: Resume usual activity Patient Instructions: Dizziness (ED), General Headache (ED) Coding Level of Care Code ED Business Planning Director for Chg Chapis
--- NOTE | 2023-09-12 15:20 | ECG_ITS ---
[facility] Test Date: 2023-09-12 Pat Name: Kari Lindsay Department: Room: Gender: Female Compliance Officer: : 1975 Requested By: Henrietta Banegas Order Number: [id number] Gabriel MD: Opal Maldonado M.D. Measurements Intervals [place] Rate: 94 P: 48 ND: 126 QRS: 61 QRSD: 99 T: 63 QT: 349 QTc: 438 Interpretive Statements SINUS RHYTHM WITH OCCASIONAL SUPRAVENTRICULAR PREMATURE COMPLEXES Compared to ECG 02/27/2016 21:08:18 No significant changes Electronically Signed On 09-12-2023 18:45:00 FORENSIC PATHOLOGIST by Opal Maldonado M.D. [id number]
[2023-09-12 15:41] LABS: Basophils # 0.1 10^3/uL (0.0-0.1); Basophils % 0.4 %; Eosinophils # 0.1 10^3/uL (0.0-0.8); Eosinophils % 0.5 %; Hematocrit 44.8 % (36-47); Lymphocytes # 2.6 10^3/uL (0.8-4.8); Mean Corpuscular HGB Conc 33.3 g/dL (30-55); Mean Corpuscular Hemoglobin 28.8 pg (27-33); Mean Corpuscular Volume 86.5 fl (85-98); Mean Platelet Volume 9.8 fL (7.4-10.4); Monocytes # 1.1 10^3/uL (0.2-0.9); Monocytes % 9.3 %; Neutrophils # 8.32 10^3/uL (1.8-7.7); Neutrophils % 68.4 %; Nucleated Red Blood Cells % 0 %; Platelet Count 293 10^3/cmm (157-399); Red Blood Count 5.18 10^6/uL (3.85-5.65); Red Cell Distribution Width 12.2 % (12.1-15.1); White Blood Count 12.17 10^3/uL (3.29-11.43)
[2023-09-12] MEDS: sodium chloride 0.9% 1,000 ML 999 ML IV ×2 (15:46→16:47)
[2023-09-12] MEDS: ondansetron 2 mg/ML SDV 2 mL 4 MG IVP (15:46)
[2023-09-12 16:32] LABS: Alanine Aminotransferase 19 U/L (0-33); Albumin Level 3.9 g/dL (3.5-5.2); Alkaline Phosphatase 98 U/L (35-105); Aspartate Amino Transferase 12 U/L (0-32); Blood Urea Nitrogen 17 mg/dL (6-20); Calcium 10.1 mg/dL (8.5-10.5); Carbon Dioxide 24 mmol/L (22-29); Chloride 101 mmol/L (98-107); Globulin 3.3 g/dL (1.3-4.6); Glomerular Filtration Rate 76.9 mL/min (90-130); Glucose 233 mg/dL (65-115); Osmolality Calculated 291 mOsm/kg (285-295); Sodium 136 mmol/L (136-145); Total Bilirubin 0.2 mg/dL (0.15-1.2); Total Protein 7.2 g/dL (6.6-8.7)
== END 2023-09-12 17:27 | disposition home or self-care (01) ==
PROVIDERS: Emergency Provider Emergency Medicine; PCP Family Medicine
DX: R42 Dizziness and giddiness (principal); R51.9 Headache, unspecified; Z79.82 Long term (current) use of aspirin; Z79.4 Long term (current) use of insulin; E11.9 Type 2 diabetes mellitus without complications; I10 Essential (primary) hypertension
CPT/HCPCS: 70450; 71045; 80053; 85025; 93005; 96361; 96374; 99285; J2405; J7030

== ENCOUNTER 2023-11-18 17:37 | Emergency (ER) | payer BC, MEDICAID, SELFPAY ==
[2023-07-23 14:33] VITALS: BP 149/93; BMI 33.5
[2023-11-18 17:41] VITALS: BP 165/93; PULSE 98; TEMP 37.1; O2SAT 96; BMI 32.4
--- NOTE | 2023-11-18 17:53 | ED.C_ITS ---
HPI - Psych General: Chief Complaint: Psychiatric Symptoms Stated Complaint: Meth abuse Time Seen by Provider: 11/18/23 17:42 History of Present Illness: 48-year-old female who comes in [facility] psychiatric admission. The patient reports that she started using methamphetamines because someone else if she was stating instructed her arms while she was intoxicated. She feels like they are trying to make her walk crazy. She denies suicidal ideations or homicidal ideations. She denies any hallucinations. She is a diabetic and she is concerned that her insulin pens have been altered and filled with drugs. The patient feels she needs psychiatric evaluation. Associated symptoms: Deny auditory hallucinations, visual hallucinations or homicidal ideation Review of Systems General: Reports: Other (Negative except for HPI) Psych: Reports: anxiety and irritability; Denies: visual hallucinations, auditory hallucinations, tactile hallucinations or homicidal ideation PFSH ED PFSH: Medical History Psychiatric care Diabetes Anxiety and depression IDDM (insulin dependent diabetes mellitus) HTN (hypertension), benign Nicotine dependence, cigarettes, uncomplicated Major depressive disorder, recurrent, in full remission Obsessive-compulsive disorder, unspecified Surgical History History of umbilical hernia repair (11/14/20) History of partial hysterectomy History of laparoscopic cholecystectomy History of appendectomy Social History Smoking and tobacco/nicotine status: current every day tobacco/nicotine user cigarettes Packs smoked per day: 0.5 Years cigarettes smoked: 27 Quit status (tobacco/nicotine): has tried quititng Number of times tried to quit tobacco: 1 Second hand smoke exposure: Yes Alcohol intake: current Alcohol intake frequency: few times a month Alcohol type: beer Substance/Drug Use: never Adopted: No Caregiver/support person: No Lives independently: No Household members: spouse and other 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, 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, 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: House Marital status: Number of children: 1 Number of grandchildren: 0 Highest education level completed: Some College, No Degree service: No Current occupational status: unemployed Current occupational exposures/hazards: No Pets and animals: Yes Pets & animals: dog(s) Leisure activites: fishing and other Leisure activities details: swim,crafts Sexually active: No Do you think of yourself as: Straight/Heterosexual Current gender identity: Female Luanne/Protestant: Mandaen Special luanen needs: No Agree to transfusion: Yes Female Reproductive History: Para: 1 Physical Exam 2 Const: COMMON NORMALS: no acute distress, patient oriented x3 and healthy appearing HENMT: COMMON NORMALS: normocephalic and atraumatic HEAD & SCALP: normocephalic and atraumatic Eye: COMMON NORMALS: Equal, round and reactive pupils present and EOMs intact bilaterally PUPIL: Yes Equal, round and reactive pupils present Neck/C-Spine: COMMON NORMALS: full ROM and supple Chest: COMMONS NORMALS: normal inspection of the chest and normal palpation of entire chest wall Resp: COMMON NORMALS: normal respiratory effort, No retractions, No use of accessory muscles and clear to auscultation bilaterally AUSCULTATION: clear to auscultation bilaterally Cardio: COMMON NORMALS: regular rate, regular rhythm and No murmurs present (Cardio) RATE: regular rate RHYTHM: regular rhythm GI: COMMON NORMALS: Soft to palpation, non-tender and no masses PALPATION: Yes Soft to palpation OTHER: Area of erythema to suprapubic region no fluctuance or abscess formation at this time Extremity: COMMON NORMALS: normal to inspection and full ROM Neuro: COMMON NORMALS: patient oriented x3, moves all extremities and no focal motor deficits Psych: COMMON NORMALS: mental status grossly normal, Normal thought process present and cooperative THOUGHT PROCESS: Normal thought process present OTHER: No suicidal or homicidal ideations Skin: COMMON NORMALS: no rashes or lesions noted and no wounds GENERAL SKIN EXAM: no rashes or lesions noted Course Reevaluation(s): Reevaluation #1: Patient is requesting to be dismissed. Patient is not suicidal, she is not homicidal, she is oriented x 3 and appropriate for dismissal. Time: 17:59 Vital Signs: Vital signs: Vital Signs Temperature 98.8 F 11/18/23 17:41 Pulse Rate 98 11/18/23 17:41 Blood Pressure 165/93 11/18/23 17:41 Pulse Oximetry 96 11/18/23 17:41 Oxygen Delivery Me thod Room Air 11/18/23 17:41 MDM - Psych Medical Decision Making 48-year-old female who presents due to methamphetamine use, requesting psychiatric admission. She is not suicidal nor homicidal. She is not having any hallucinations. She is having some potentially delusional thoughts thinking that her insulin pens have been altered. Patient is requesting psychiatric admission. Will obtain labs and EKG for medical clearance. No radiology studies performed this visit Discharge Plan Discharge Patient Disposition: Home Clinical Impression: Methamphetamine abuse Condition: Stable Prescriptions: No Action insulin glargine [Lantus Solostar U-100 Insulin] 100 unit/mL (3 mL) insulin pen 20 unit SUBCUT BID Qty: 15 8RF (DME) Diabetic shoes with 3 sets of insoles See Rx Instructions .Route .MEDSUPPLY Qty: 1 0RF Rx Instructions: As directed celecoxib [Celebrex] 100 mg capsule 100 mg PO BID insulin aspart U-100 [Novolog FlexPen U-100 Insulin] 100 unit/mL (3 mL) insulin pen 10 unit SUBCUT TID MDD 30 units Qty: 15 4RF duloxetine 60 mg capsule,delayed release(DR/EC) 60 mg PO DAILY Qty: 30 1RF aspirin 325 mg Tablet 325 mg PO QAM meclizine 25 mg tablet 25 mg PO BID PRN (Reason: dizziness) Qty: 20 0RF Discharge Orders: Discharge ED (Routine); Ordered 11/18/23 Ordered By: Mary aKy Hallman Referrals: Raymond Johnson DO [Primary Care Provider] - Discharge Diet: Advance as tolerated Discharge Activity: Resume usual activity Patient Instructions: Opioid Safety, Pain Management Activity Restrictions/Additional Instructions: stop abusing drugs return if further problems Coding Level of Care Code ED Copy Preparer for Rosemarie Nation
== END 2023-11-18 18:13 | disposition home or self-care (01) ==
PROVIDERS: Emergency Provider Emergency Medicine; PCP Family Medicine
DX: F15.10 Other stimulant abuse, uncomplicated (principal); Z79.82 Long term (current) use of aspirin; Z79.4 Long term (current) use of insulin; E11.9 Type 2 diabetes mellitus without complications; I10 Essential (primary) hypertension; F17.210 Nicotine dependence, cigarettes, uncomplicated
CPT/HCPCS: 99281

== ENCOUNTER 2023-11-18 18:40 | Inpatient (IN) | payer BC, SELFPAY ==
[2023-07-23 14:33] VITALS: BP 149/93; BMI 33.5
[2023-11-18 18:58] VITALS: BP 154/90; PULSE 101; RESP 18; TEMP 37.1; O2SAT 96; BMI 32.8
--- NOTE | 2023-11-18 19:05 | ECG_ITS ---
[facility] Test Date: 2023-11-18 Pat Name: Kari Lindsay Department: Room: Gender: Female Functional Manager: : 1975 Requested By: Phillip Ferreira Order Number: [id number] Rios MD: Opal Maldonado M.D. Measurements Intervals [place] Rate: 96 P: 55 TX: 131 QRS: 64 QRSD: 98 T: 49 QT: 357 QTc: 453 Interpretive Statements SINUS RHYTHM Compared to ECG 09/12/2023 15:20:07 No significant changes Electronically Signed On 11-19-2023 10:51:15 POWER CHISEL OPERATOR by Opal Maldonado M.D. [id number]
--- NOTE | 2023-11-18 19:06 | ED.C_ITS ---
HPI - Psych 2 General: Chief Complaint: Psychiatric Symptoms Stated Complaint: MHE/ Scared .. Time Seen by Provider: 11/18/23 19:07 History of Present Illness: 48-year-old female presents to the emerg ency department stating that she needs to talk with someone if she needs additional help. On continued discussion with the patient in the room she feels like people are out to get her she has had a a lot of increased life stressors and states that she feels like people trying to set her up and she has difficulty trusting people with anything lately. While I was sitting in the patient's room I did have a piece of paper in my hand and she asked what the paper was I told her it was an EKG and then she immediately said now she has difficulties trusting me and she is sure that I am doing things to harm her and make her do things that she does not want to do. When I asked questions regarding her previous psychiatric history and medication she was very evasive and very tangential thinking and intermittently laughed in the middle of the conversation for what appeared to be no reason. Associated symptoms: Reports depression; Deny homicidal ideation or suicidal ideation Review of Systems 2 General: Reports: 10 or more systems reviewed and unremarkable except in HPI and below Psych: Reports: anxiety, depression and paranoia; Denies: suicidal ideation or homicidal ideation PFSH ED 2 PFSH: Medical History Psychiatric care Diabetes Anxiety and depression IDDM (insulin dependent diabetes mellitus) HTN (hypertension), benign Nicotine dependence, cigarettes, uncomplicated Major depressive disorder, recurrent, in full remission Obsessive-compulsive disorder, unspecified Surgical History History of umbilical hernia repair (11/14/20) History of partial hysterectomy History of laparoscopic cholecystectomy History of appendectomy Social History Smoking and tobacco/nicotine status: current every day tobacco/nicotine user cigarettes Packs smoked per day: 0.5 Years cigarettes smoked: 27 Quit status (tobacco/nicotine): has tried quititng Number of times tried to quit tobacco: 1 Second hand smoke exposure: Yes Alcohol intake: current Alcohol intake frequency: few times a month Alcohol type: beer Substance/Drug Use: never Adopted: No Caregiver/support person: No Lives independently: No Household members: spouse and other 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, 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, 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: House Marital status: Number of children: 1 Number of grandchildren: 0 Highest education level completed: Some College, No Degree service: No Current occupational status: unemployed Current occupational exposures/hazards: No Pets and animals: Yes Pets & animals: dog(s) Leisure activites: fishing and other Leisure activities details: swim,crafts Sexually active: No Do you think of yourself as: Straight/Heterosexual Current gender identity: Female Luanne/Yazidi: Hoahaoism Special luanne needs: No Agree to transfusion: Yes Female Reproductive History: Para: 1 Physical Exam 2 Narrative: EXAM NARRATIVE: Constitutional: the patient appears well nourished and of normal development. Vital signs as documented. No acute distress at present. Alert and oriented-to person, place, time and situation. Head, eyes, ears, nose, mouth, throat: Normocephalic, atraumatic. Pupils-equal, round, reactive to light. No scleral icterus. Normal-appearing external ears. Normal appearing nasal turbinates, no drainage. No obvious oral lesions, posterior oropharynx without erythema or exudates. Neck: Supple, trachea is midline, no lymphadenopathy, no jugular venous distension, thyromegaly, or carotid bruits. Carotid upstrokes are brisk bilaterally. Lungs: clear to auscultation to all lung vasquez. Symmetrical rise and fall of chest, no obvious signs of increased work of breathing at present. Cardiac: Regular rate and rhythm, positive S1, S2. No murmurs, rubs or gallops that I can appreciate Abdomen: Soft, non-tender to palpation, normal active bowel sounds to all quadrants. No palpable masses, no organomegaly and abdominal bruits. Extremities: 2+ pulses in the upper extremities that are equal bilaterally, 2+ pulses in the lower extremities that are equal bilaterally. Non-edematous. Moves all extremities well, sensation to all extremities are noted. Skin: Warm, dry, intact. Psych: Calm and cooperative, evasive, tangential thinking noted. Course 2 Vital Signs: Vital signs: Vital Signs Temperature 98.8 F 11/18/23 18:58 Pulse Rate 101 H 11/18/23 18:58 Respiratory Rate 18 11/18/23 18:58 Blood Pressure 154/90 11/18/23 18:58 Pulse Oximetry 96 11/18/23 18:58 Oxygen Delivery Me thod Room Air 11/18/23 18:58 MDM - Psych Medical Decision Making I will provide medical clearance laboratory evaluation to include CBC CMP twelve-lead EKG and contact the psychiatrist for placement in the Neuropsych Unit. She does have a history of methamphetamine abuse and is positive for amphetamines on today's urine drug screen. Medical Records I reviewed the patient's medical records. Lab Data I reviewed the patient's lab results. 11/18/23 19:16 11/18/23 19:16 Laboratory Results WBC 7.63 10^3/uL (3.29-11.43) 11/18/23 19:16 RBC 4.36 10^6/uL (3.85-5.65) 11/18/23 19:16 Hgb 12.30 g/dL (11.27-16.99) 11/18/23 19:16 Hct 37.8 % (36-47) 11/18/23 19:16 MCV 86.7 fl (85-98) 11/18/23 19:16 MCH 28.2 pg (27-33) 11/18/23 19:16 MCHC 32.5 g/dL (30-55) 11/18/23 19:16 RDW 12.7 % (12.1-15.1) 11/18/23 19:16 Plt Count 248 10^3/cmm (157-399) 11/18/23 19:16 MPV 9.9 fL (7.4-10.4) 11/18/23 19:16 Neut % (Auto) 52.8 % 11/18/23 19:16 Lymph % (Auto) 33.8 % 11/18/23 19:16 Keith % (Auto) 10.6 % 11/18/23 19:16 Eos % (Auto) 1.8 % 11/18/23 19:16 Baso % (Auto) 0.7 % 11/18/23 19:16 Neut # (Auto) 4.03 10^3/uL (1.8-7.7) 11/18/23 19:16 Lymph # (Auto) 2.6 10^3/uL (0.8-4.8) 11/18/23 19:16 Keith # (Auto) 0.8 10^3/uL (0.2-0.9) 11/18/23 19:16 Eos # (Auto) 0.1 10^3/uL (0.0-0.8) 11/18/23 19:16 Baso # (Auto) 0.1 10^3/uL (0.0-0.1) 11/18/23 19:16 Nucleated RBC % (auto) 0 % 11/18/23 19:16 Nucleated RBCs # 0.0 /100WBC 11/18/23 19:16 Sodium 134 mmol/L (136-145) L 11/18/23 19:16 Potassium 3.7 mmol/L (3.5-5.1) 11/18/23 19:16 Chloride 103 mmol/L (98-107) 11/18/23 19:16 Carbon Dioxide 22 mmol/L (22-29) 11/18/23 19:16 Anion Gap 12.7 (5-19) 11/18/23 19:16 BUN 18 mg/dL (6-20) 11/18/23 19:16 Creatinine 0.7 mg/dL (0.5-0.9) 11/18/23 19:16 GFR Calculation 89.3 mL/min (90-130) L 11/18/23 19:16 Glucose 118 mg/dL (65-115) H 11/18/23 19:16 Calculated Osmolality 281 mOsm/kg (285-295) L 11/18/23 19:16 Calcium 9.3 mg/dL (8.5-10.5) 11/18/23 19:16 Total Bilirubin 0.4 mg/dL (0.15-1.2) 11/18/23 19:16 AST 18 U/L (0-32) 11/18/23 19:16 ALT 19 U/L (0-33) 11/18/23 19:16 Alkaline Phosphatase 118 U/L (35-105) H 11/18/23 19:16 Total Protein 7.1 g/dL (6.6-8.7) 11/18/23 19:16 Albumin 3.8 g/dL (3.5-5.2) 11/18/23 19:16 Globulin 3.3 g/dL (1.3-4.6) 11/18/23 19:16 TSH 1.60 uIU/mL (0.27-4.20) 11/18/23 19:16 HCG, Qual Negative (Negative) 11/18/23 19:46 Urine Color Yellow (Yellow) 11/18/23 19:46 Urine Appearance Clear (CLEAR) 11/18/23 19:46 Urine pH 5 (5-7) 11/18/23 19:46 Ur Specific [place] 1.025 (1.005-1.030) 11/18/23 19:46 Urine Protein Neg (Negative) 11/18/23 19:46 Urine Glucose (UA) Norm (Normal) 11/18/23 19:46 Urine Ketones Negative (Negative) 11/18/23 19:46 Urine Blood 2+ (Negative) H 11/18/23 19:46 Urine Nitrate Negative (Negative) 11/18/23 19:46 Urine Bilirubin Neg (Negative) 11/18/23 19:46 Urine Urobilinogen Neg mg/dL (Negative) 11/18/23 19:46 Ur Leukocyte Esterase 1+ (Negative) H 11/18/23 19:46 Urine RBC 5-10 /hpf (0-2) H 11/18/23 19:46 Urine WBC 10-15 /hpf (0-5) H 11/18/23 19:46 Ur Squamous Epith Cells 10-15 /hpf (0-5) H 11/18/23 19:46 Amorphous Sediment 1+ /hpf 11/18/23 19:46 Urine Bacteria 2+ /hpf (NONE) H 11/18/23 19:46 Urine Mucus 2+ /hpf 11/18/23 19:46 Salicylates < 0.3 mg/dL (3-10) L 11/18/23 19:16 Urine Opiates Screen Negative ng/mL (Negative) 11/18/23 19:46 Acetaminophen < 5.0 ug/mL (10-30) L 11/18/23 19:16 Ur Barbiturates Screen Negative ng/mL (Negative) 11/18/23 19:46 Ur Phencyclidine Scrn Negative ng/mL (Negative) 11/18/23 19:46 Ur Amphetamines Screen Positive ng/mL (Negative) H 11/18/23 19:46 U Benzodiazepines Scrn Negative ng/mL (Negative) 11/18/23 19:46 Urine Cocaine Screen Negative ng/mL (Negative) 11/18/23 19:46 U Marijuana (THC) Screen Negative ng/mL (Negative) 11/18/23 19:46 Ethyl Alcohol < 10 mg/dL (0-10) 11/18/23 19:16 All radiology interpretation(s) finalized by discharge EKG Data EKG 1: Interpretation: Twelve-lead EKG obtained at 1950 reviewed at 1955 demonstrates sinus rhythm, ventricular rate 96 bpm, MA interval 131, QRS 98 QT [address] elevation or depression to demonstrate acute ischemia or infarction. Discharge Plan Discharge Patient Disposition: Admitted As Inpatient Clinical Impression: Paranoid behavior, Methamphetamine abuse, Depression Condition: Stable Prescriptions: No Action insulin glargine [Lantus Solostar U-100 Insulin] 100 unit/mL (3 mL) insulin pen 20 unit SUBCUT BID Qty: 15 8RF (DME) Diabetic shoes with 3 sets of insoles See Rx Instructions .Route .MEDSUPPLY Qty: 1 0RF Rx Instructions: As directed celecoxib [Celebrex] 100 mg capsule 100 mg PO BID insulin aspart U-100 [Novolog FlexPen U-100 Insulin] 100 unit/mL (3 mL) insulin pen 10 unit SUBCUT TID MDD 30 units Qty: 15 4RF duloxetine 60 mg capsule,delayed release(DR/EC) 60 mg PO DAILY Qty: 30 1RF aspirin 325 mg Tablet 325 mg PO QAM meclizine 25 mg tablet 25 mg PO BID PRN (Reason: dizziness) Qty: 20 0RF Referrals: Raymond Johnson DO [Primary Care Provider] - Coding Level of Care Code ED Nurse Substance Abuse for Chg Chapis
[2023-11-18 19:30] LABS: Basophils # 0.1 10^3/uL (0.0-0.1); Basophils % 0.7 %; Eosinophils # 0.1 10^3/uL (0.0-0.8); Eosinophils % 1.8 %; Hematocrit 37.8 % (36-47); Lymphocytes # 2.6 10^3/uL (0.8-4.8); Lymphocytes % 33.8 %; Mean Corpuscular HGB Conc 32.5 g/dL (30-55); Mean Corpuscular Hemoglobin 28.2 pg (27-33); Mean Corpuscular Volume 86.7 fl (85-98); Mean Platelet Volume 9.9 fL (7.4-10.4); Monocytes # 0.8 10^3/uL (0.2-0.9); Monocytes % 10.6 %; Neutrophils # 4.03 10^3/uL (1.8-7.7); Neutrophils % 52.8 %; Nucleated Red Blood Cells % 0 %; Platelet Count 248 10^3/cmm (157-399); Red Blood Count 4.36 10^6/uL (3.85-5.65); Red Cell Distribution Width 12.7 % (12.1-15.1); White Blood Count 7.63 10^3/uL (3.29-11.43)
[2023-11-18 20:01] LABS: Acetaminophen < 5.0 ug/mL (10-30); Alanine Aminotransferase 19 U/L (0-33); Albumin Level 3.8 g/dL (3.5-5.2); Alcohol Level < 10 mg/dL (0-10); Alkaline Phosphatase 118 U/L (35-105); Anion Gap 12.7 (5-19); Aspartate Amino Transferase 18 U/L (0-32); Blood Urea Nitrogen 18 mg/dL (6-20); Calcium 9.3 mg/dL (8.5-10.5); Carbon Dioxide 22 mmol/L (22-29); Chloride 103 mmol/L (98-107); Creatinine Clr Calc Pharmacy 100.8625; Globulin 3.3 g/dL (1.3-4.6); Glomerular Filtration Rate 89.3 mL/min (90-130); Glucose 118 mg/dL (65-115); Osmolality Calculated 281 mOsm/kg (285-295); Potassium 3.7 mmol/L (3.5-5.1); Salicylate < 0.3 mg/dL (3-10); Sodium 134 mmol/L (136-145); Total Bilirubin 0.4 mg/dL (0.15-1.2); Total Protein 7.1 g/dL (6.6-8.7)
[2023-11-18 20:09] LABS: HCG Qualitative Urine. Negative (Negative)
[2023-11-18 20:25] LABS: Urine Color Yellow (Yellow); pH Urine 5 (5-7)
[2023-11-18 20:26] LABS: Add Urine Microscopic? YES; Amphetamines Screen Urine Positive (Negative); Barbiturates Screen Urine Negative (Negative); Benzodiazepines Screen Urine Negative (Negative); Bilirubin Urine Neg (Negative); Cocaine Screen Urine Negative (Negative); Glucose Urine UA Norm (Normal); Ketones Urine Negative (Negative); Nitrate Urine Negative (Negative); Opiate Screen Urine Negative (Negative); PCP Screen Urine Negative (Negative); Protein Urine Neg (Negative); Specific Gravity, Urine 1.025 (1.005-1.030); THC Screen Urine Negative (Negative); Urobilinogen Urine Neg (Negative)
[2023-11-18 20:29] LABS: Add Urine Culture? No; Amorphous Sediment Urine 1+ /hpf; Bacteria Urine 2+ /hpf; Blood Urine 2+ (Negative); Leukocyte Esterase Urine 1+ (Negative); Mucus Urine 2+ /hpf; Urine Appearance Clear (CLEAR)
[2023-11-18] MEDS: ibuprofen 200 mg Tablet 400 MG PO (20:44)
[2023-11-18 21:40] VITALS: BP 154/90; PULSE 101; RESP 18; TEMP 37.1; O2SAT 96
[2023-11-18 22:00] VITALS: RESP 20
[2023-11-18 22:00] LABS: Glucose Point of Care 92 mg/dL (70-110)
[2023-11-18] MEDS: trazodone 50 mg Tablet PO (22:56)
[2023-11-18] MEDS: OLANZapine 5 mg ODT PO (22:56)
[2023-11-19 06:00] VITALS: BP 116/81; PULSE 69; RESP 15; TEMP 36.7; O2SAT 99
[2023-11-19 07:07] LABS: Glucose Point of Care 77 mg/dL (70-110)
[2023-11-19 08:27] LABS: Glucose Point of Care 89 mg/dL (70-110)
[2023-11-19 08:51] LABS: Basophils # 0.1 10^3/uL (0.0-0.1); Basophils % 1.2 %; Eosinophils # 0.1 10^3/uL (0.0-0.8); Eosinophils % 2.5 %; Hematocrit 40.6 % (36-47); Lymphocytes # 1.6 10^3/uL (0.8-4.8); Lymphocytes % 33.7 %; Mean Corpuscular Hemoglobin 29.1 pg (27-33); Mean Corpuscular Volume 88.1 fl (85-98); Mean Platelet Volume 9.5 fL (7.4-10.4); Monocytes # 0.5 10^3/uL (0.2-0.9); Monocytes % 10.7 %; Neutrophils # 2.51 10^3/uL (1.8-7.7); Neutrophils % 51.7 %; Nucleated Red Blood Cells % 0 %; Platelet Count 252 10^3/cmm (157-399); Red Blood Count 4.61 10^6/uL (3.85-5.65); Red Cell Distribution Width 12.7 % (12.1-15.1); White Blood Count 4.86 10^3/uL (3.29-11.43)
[2023-11-19 09:05] LABS: Anion Gap 13.8 (5-19); Blood Urea Nitrogen 14 mg/dL (6-20); Calcium 9.7 mg/dL (8.5-10.5); Carbon Dioxide 28 mmol/L (22-29); Chloride 106 mmol/L (98-107); Creatinine Clr Calc Pharmacy 88.2547; Glomerular Filtration Rate 76.6 mL/min (90-130); Glucose 90 mg/dL (65-115); Osmolality Calculated 296 mOsm/kg (285-295); Potassium 4.8 mmol/L (3.5-5.1); Sodium 143 mmol/L (136-145)
[2023-11-19] MEDS: duloxetine 60 mg Capsule PO (09:13)
[2023-11-19 12:31] LABS: Glucose Point of Care 262 mg/dL (70-110)
[2023-11-19] MEDS: insulin lispro 100 unit/1 mL 10 UNIT SUBCUT ×2 (12:32→17:45)
[2023-11-19 13:43] VITALS: BP 61/43; PULSE 75; RESP 16; TEMP 36.9; O2SAT 92
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
[2023-11-19 17:52] LABS: Glucose Point of Care 155 mg/dL (70-110)
[2023-11-19] MEDS: insulin glargine 100 units/1 mL 20 UNIT SUBCUT (17:52)
[2023-11-19 20:11] LABS: Glucose Point of Care 216 mg/dL (70-110)
[2023-11-19 20:54] VITALS: BP 88/59; PULSE 79; RESP 18; TEMP 36.9; O2SAT 98
[2023-11-19] MEDS: mirtazapine 15 mg Tablet PO (21:51)
[2023-11-20 06:00] VITALS: BP 158/82; PULSE 81; RESP 18; O2SAT 96
[2023-11-20] MEDS: aspirin 325 mg Tablet PO (06:10)
[2023-11-20 07:22] LABS: Glucose Point of Care 177 mg/dL (70-110)
[2023-11-20] MEDS: insulin glargine 100 units/1 mL 20 UNIT SUBCUT ×2 (08:10→20:41)
[2023-11-20] MEDS: insulin lispro 100 unit/1 mL 10 UNIT SUBCUT ×3 (08:11→17:40)
--- NOTE | 2023-11-20 08:39 | PC.NURSE ---
Resting in bed. Patient denies avh and si/hi this morning. She denies any depression or anxiety, but appears to be anxious as she occasionally laughs nervously at inappropriate times. She endorses poor sleep and says this is normal for her.
[2023-11-20] MEDS: duloxetine 60 mg Capsule PO (09:17)
--- NOTE | 2023-11-20 11:43 | P.NPUPN_ITS ---
Subjective NPU 2 Subjective: Patient presented today reporting that she is doing OK today. We discussed the remeron which she reported has helped with sleep. She denied any current side effects to the medication. She endorsed talking to the social work team about outpatient sober living treatment. Still ambivalent about addiction being as severe and impacting her life the way it appears to be. Mental Status Exam 2 MSE Comments: This is an obese white female in hospital scrubs with limited grooming and eye contact. No abnormal movements except for significant psychomotor retardation. Cooperative with exam in mild to moderate distress. Speech was decreased rate and normal volume. Mood described as depressed, affect congruent and subdued. Thought process organized. Thought content: Patient endorsed Reports feelings of helplessness, hopelessness, worthlessness, sleep difficulties, appetite issues during depressive episodes, constant worry, no current suicidal ideation, no current thoughts of violence, no hallucinations, no paranoia., no visual hallucinations Attention and concentration were intact and memory appeared mostly reliable but none were formally tested. She is alert and oriented x 3. Insight and judgment appear fair and impulse control limited. Vitals/I&O/Wt Last Vital Signs Temp 98.4 F 11/19/23 20:54 Pulse 81 11/20/23 06:00 Resp 18 11/20/23 06:00 BP 158/82 11/20/23 06:00 Pulse Ox 96 11/20/23 06:00 O2 Del Method Room Air 11/20/23 06:00 Weight last 48 hrs Weight 83.915 kg Data NPU 11/19/23 08:41 11/19/23 08:41 A&P Assessment and plan (1) Obsessive-compulsive disorder, unspecified: (2) Major depressive disorder, recurrent, in full remission: (3) Generalized anxiety disorder: (4) Methamphetamine use disorder, moderate, dependence: Plan This is a 48-year-old white female who presents with symptoms of ongoing depression and anxiety, history of drug use, and recent emotional distress due to marital issues. Patient is seeking help for her mental health issues and is open to medication management. 1. Started Remeron 15 mg p.o. nightly. 2. Continue every 15 minute checks for safety. 3. Encourage individual, group and milieu therapy. 4. Encourage sober living treatment after discharge at the highest level care to which she is willing to commit. Involuntary Hold Information 2 96 Hour Hold: 96 Hour Involuntary Admission: No Attestations NPU 2 Medical Necessity Statement*: Inpatient hospitalization is medically necessary and the clinically appropriate intervention at this time. We will monitor/initiate medications and make changes as indicated. Likely length of stay 3-5 days. Coding Level of Care Code Acute Code for Chg Fwd Diagnoses Obsessive-compulsive disorder, unspecified F42.9 Major depressive disorder, recurrent, in full remission F33.42 Generalized anxiety disorder F41.1 Methamphetamine use disorder, moderate, dependence F15.20
[2023-11-20 11:48] LABS: Glucose Point of Care 166 mg/dL (70-110)
[2023-11-20 14:00] VITALS: BP 94/60; PULSE 70; RESP 13; TEMP 36.8; O2SAT 96
[2023-11-20 17:42] LABS: Glucose Point of Care 245 mg/dL (70-110)
[2023-11-20] MEDS: mirtazapine 15 mg Tablet PO (20:40)
[2023-11-20 20:43] VITALS: BP 88/65; PULSE 73; RESP 16; TEMP 36.8; O2SAT 96
[2023-11-20 21:20] LABS: Glucose Point of Care 307 mg/dL (70-110)
[2023-11-21 06:00] VITALS: BP 132/90; PULSE 75; RESP 16; TEMP 36.8; O2SAT 98
[2023-11-21] MEDS: duloxetine 60 mg Capsule PO (07:55)
[2023-11-21] MEDS: aspirin 325 mg Tablet PO (07:55)
[2023-11-21] MEDS: insulin glargine 100 units/1 mL 20 UNIT SUBCUT ×2 (07:57→20:52)
[2023-11-21] MEDS: insulin lispro 100 unit/1 mL 10 UNIT SUBCUT ×3 (07:57→17:18)
[2023-11-21 08:51] LABS: Glucose Point of Care 150 mg/dL (70-110)
[2023-11-21 11:48] LABS: Glucose Point of Care 174 mg/dL (70-110)
[2023-11-21 14:00] VITALS: BP 108/78; PULSE 82; RESP 13; O2SAT 97
--- NOTE | 2023-11-21 17:54 | P.NPUPN_ITS ---
Subjective NPU 2 Subjective: Patient presented today reporting that she is doing a little better. She reports she has been in communication with her daughter and that they come up with a plan. She reports that her daughter is coming into town for a birthday alliance party for her grandmother tomorrow and that a relative or her daughter will pick her up. She reports that the plan that she will go and stay with her daughter and get enrolled in 1 of those likely outpatient sober living programs. She denied any side effects to the medication. Mental Status Exam 2 MSE Comments: This is an obese white female in hospital scrubs with limited grooming and eye contact. No abnormal movements except for significant psychomotor retardation. Cooperative with exam in mild distress. Speech was decreased rate and normal volume. Mood described as a little better, affect congruent and subdued. Thought process organized. Thought content: Patient endorsed Reports feelings of helplessness, hopelessness, worthlessness, sleep difficulties, appetite issues during depressive episodes, constant worry, no current suicidal ideation, no current thoughts of violence, no hallucinations, no paranoia., no visual hallucinations Attention and concentration were intact and memory appeared mostly reliable but none were formally tested. She is alert and oriented x 3. Insight and judgment appear fair and impulse control limited. Vitals/I&O/Wt Last Vital Signs Temp 98.3 F 11/21/23 06:00 Pulse 82 11/21/23 14:00 Resp 13 11/21/23 14:00 BP 108/78 11/21/23 14:00 Pulse Ox 97 11/21/23 14:00 O2 Del Method Room Air 11/21/23 06:00 Data NPU 11/19/23 08:41 11/19/23 08:41 A&P Assessment and plan (1) Obsessive-compulsive disorder, unspecified: (2) Major depressive disorder, recurrent, in full remission: (3) Generalized anxiety disorder: (4) Methamphetamine use disorder, moderate, dependence: Plan This is a 48-year-old white female who presents with symptoms of ongoing depression and anxiety, history of drug use, and recent emotional distress due to marital issues. Patient is seeking help for her mental health issues and is open to medication management. 1. Started Remeron 15 mg p.o. nightly. 2. Continue every 15 minute checks for safety. 3. Encourage individual, group and milieu therapy. 4. Encourage sober living treatment after discharge at the highest level care to which she is willing to commit. Involuntary Hold Information 2 96 Hour Hold: 96 Hour Involuntary Admission: No Attestations NPU 2 Medical Necessity Statement*: Inpatient hospitalization is medically necessary and the clinically appropriate intervention at this time. We will monitor/initiate medications and make changes as indicated. Likely length of stay 1 day. Coding Level of Care Code Acute Code for g Fwd Diagnoses Obsessive-compulsive disorder, unspecified F42.9 Major depressive disorder, recurrent, in full remission F33.42 Generalized anxiety disorder F41.1 Methamphetamine use disorder, moderate, dependence F15.20
[2023-11-21 17:57] LABS: Glucose Point of Care 177 mg/dL (70-110)
[2023-11-21 19:54] VITALS: BP 95/62; PULSE 82; RESP 15; TEMP 36.8; O2SAT 97
[2023-11-21 20:03] LABS: Glucose Point of Care 244 mg/dL (70-110)
[2023-11-21] MEDS: mirtazapine 15 mg Tablet PO (20:52)
[2023-11-22 06:00] VITALS: BP 105/74; PULSE 76; RESP 16; TEMP 36.8; O2SAT 97
[2023-11-22 07:53] LABS: Glucose Point of Care 183 mg/dL (70-110)
[2023-11-22] MEDS: aspirin 325 mg Tablet PO (08:14)
[2023-11-22] MEDS: insulin lispro 100 unit/1 mL 10 UNIT SUBCUT (08:14)
[2023-11-22] MEDS: duloxetine 60 mg Capsule PO (08:14)
[2023-11-22] MEDS: insulin glargine 100 units/1 mL 20 UNIT SUBCUT (08:18)
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
[2023-11-22 11:18] VITALS: BP 105/74; PULSE 76; RESP 16; TEMP 36.8; O2SAT 97
== END 2023-11-22 11:37 | disposition home or self-care (01) | DRG 885 ==
LOC: ER 21:01 → NP 21:10
PROVIDERS: Admitting Provider Psychiatry & Neurology Psychiatry; Emergency Provider Internal Medicine; PCP Family Medicine; Visit Provider Psychiatry & Neurology Psychiatry
DX: F23 Brief psychotic disorder (principal); F33.42 Major depressive disorder, recurrent, in full remission; E11.9 Type 2 diabetes mellitus without complications; I10 Essential (primary) hypertension; F41.1 Generalized anxiety disorder; F41.0 Panic disorder [episodic paroxysmal anxiety]; F17.210 Nicotine dependence, cigarettes, uncomplicated; F42.9 Obsessive-compulsive disorder, unspecified; F15.10 Other stimulant abuse, uncomplicated; E66.9 Obesity, unspecified; Z63.0 Problems in relationship with spouse or partner; Z79.4 Long term (current) use of insulin; Z68.31 Body mass index [BMI] 31.0-31.9, adult; Z79.82 Long term (current) use of aspirin
CPT/HCPCS: 36415; 36416; 80048; 80053; 80306; 80307; 81001; 81025; 82962; 84443; 85025; 93005; 96372; 97165; 99285; J1815

== ENCOUNTER → 2024-10-25 09:51 | Outpatient (BNVA) | payer BC, MEDICAID, SELFPAY ==
[2023-07-23 14:33] VITALS: BP 149/93; BMI 33.5
== END ==
PROVIDERS: PCP Family Medicine; Visit Provider Student in an Organized Health Care Education/Training Program
DX: M65.331 Trigger finger, right middle finger; M65.332 Trigger finger, left middle finger; M79.641 Pain in right hand; M79.642 Pain in left hand; M06.4 Inflammatory polyarthropathy
CPT/HCPCS: 36415; 73130; 80053; 84550; 85025; 85651; 86140; 86200; 86225; 86235; 86431

== ENCOUNTER → 2024-10-28 11:50 | Outpatient (BNVA) | payer BC, MEDICAID, SELFPAY ==
[2023-07-23 14:33] VITALS: BP 149/93; BMI 33.5
== END ==
PROVIDERS: PCP Family Medicine; Visit Provider Internal Medicine
DX: E11.9 Type 2 diabetes mellitus without complications (principal)
CPT/HCPCS: 36415; 80053; 80061; 82044; 83036; 84681; 86337; 86341

== ENCOUNTER 2025-04-13 14:34 | Outpatient (CLI) | payer BC, MEDICAID, SELFPAY ==
[2023-07-23 14:33] VITALS: BP 149/93; BMI 33.5
[2025-04-13 15:27] LABS: Alanine Aminotransferase 20 U/L (0-33); Albumin Level 3.9 g/dL (3.5-5.2); Alkaline Phosphatase 111 U/L (35-105); Anion Gap 15.2 (5-19); Aspartate Amino Transferase 13 U/L (0-32); Blood Urea Nitrogen 15 mg/dL (6-20); Calcium 9.4 mg/dL (8.5-10.5); Carbon Dioxide 21 mmol/L (22-29); Chloride 104 mmol/L (98-107); Cholesterol 161 mg/dL (0-200); Globulin 3.1 g/dL (1.3-4.6); Glucose 364 mg/dL (65-115); HDL Cholesterol 29 mg/dL (60-100); Osmolality Calculated 298 mOsm/kg (285-295); Potassium 4.2 mmol/L (3.5-5.1); Sodium 136 mmol/L (136-145); Total Protein 7.0 g/dL (6.6-8.7); Triglycerides 241 mg/dL (0-150)
[2025-04-13 15:32] LABS: Estmated Average Glucose 301; Hemoglobin A1C 12.1 % (4.0-6.0)
[2025-04-13 15:32] LABS: Creatinine Urine, Random 57 mg/dL (28-217); Microalbum Creatinine Ratio Ur 18 mg/dL (0-20)
== END 2025-04-13 14:35 | disposition home or self-care (01) ==
PROVIDERS: PCP Family Medicine; Visit Provider Internal Medicine
DX: E13.9 Other specified diabetes mellitus without complications (principal); E78.2 Mixed hyperlipidemia
CPT/HCPCS: 36415; 80053; 80061; 82044; 82533; 83036

== ENCOUNTER 2025-05-11 11:52 | Outpatient (CLI) | payer BC, MEDICAID, SELFPAY ==
[2023-07-23 14:33] VITALS: BP 149/93; BMI 33.5
--- NOTE | 2025-05-11 11:59 | XR_ITS ---
WS: [id number] Lumbar spine, 3 views, 05/11/2025 Clinical Data: M54.50 - Low back pain, unspecified Comparison: None. Findings: No compression fractures or subluxation is seen. No disc space narrowing is seen. The transverse processes and SI joints are normal. Minimal osteoarthritic spurring is present L2-L5. There are electronic devices overlying the iliac bones. There are cholecystectomy clips in the right upper quadrant. XR/XR lumbar spine 2-3V* [id number] Impression: Minimal osteophytes L2-L5.
== END 2025-05-11 11:53 | disposition home or self-care (01) ==
LOC: RAD 11:55
PROVIDERS: PCP Nurse Practitioner Family; Visit Provider Nurse Practitioner Family
DX: M54.50 Low back pain, unspecified (principal); Z97.8 Presence of other specified devices; Z90.49 Acquired absence of other specified parts of digestive tract
CPT/HCPCS: 72100; 84439; 84443; 85025

== ENCOUNTER 2025-05-30 17:24 | Emergency (ER) | payer BC, MEDICAID, SELFPAY ==
[2023-07-23 14:33] VITALS: BP 149/93; BMI 33.5
[2025-05-30 17:25] VITALS: BP 129/90; PULSE 87; RESP 16; TEMP 36.6; O2SAT 98; BMI 32.8
[2025-05-30 17:32] VITALS: BP 129/90; PULSE 80; RESP 16; O2SAT 99
--- OUTSIDE RECORDS SUMMARY | 2025-05-30 17:34 | XMS_ITS | Encounter Summary ---
Author Organization [facility] Address [address] [place] [address] Care Team Providers Care Hospital Personnel Director Name Role Phone Raymond Johnson DO Primary Care Provider [phone]- [phone] Encounter Details Date Type Department Care Team (Latest Contact Info) Description 07/29/2002 Outpatient Historical [facility] Medicine [address] [phone] Erin Pablo MD [address] [place] [id number] CELLULITIS OF TRUNK (Primary Dx) Social History Tobacco Use Types Packs/Day Years Used Date Smoking Tobacco: Never Assessed Comments Unknown Sex and Gender Information Value Date Recorded Sex Assigned at Not on file 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
--- OUTSIDE RECORDS SUMMARY | 2025-05-30 17:34 | XMS_ITS | Encounter Summary ---
Author Organization [facility] Address [address] [place] [address] Care Team Providers Care Automobile Service Advisor Name Role Phone Raymond Johnson DO Primary Care Provider [phone]- [phone] Encounter Details Date Type Department Care Team (Latest Contact Info) Description 08/03/2002 Outpatient Historical [facility] Medicine [address] [phone] Erin Pablo MD [address] [place] [id number] CELLULITIS OF TRUNK (Primary Dx) Social History Tobacco Use Types Packs/Day Years Used Date Smoking Tobacco: Never Assessed Comments Unknown Sex and Gender Information Value Date Recorded Sex Assigned at Not on file 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
--- OUTSIDE RECORDS SUMMARY | 2025-05-30 17:34 | XMS_ITS | Encounter Summary ---
Author Organization [facility] Address [address] [place] [address] Care Team Providers Care Cytotechnologist/Cytology Supervisor Name Role Phone Raymond Johnson DO Primary Care Provider +1- [phone] Encounter Details Date Type Department Care Team (Latest Contact Info) Description 03/24/2005 Outpatient Historical [facility] Family Medicine [place] [address] 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
--- OUTSIDE RECORDS SUMMARY | 2025-05-30 17:34 | XMS_ITS | Encounter Summary ---
Author Organization [facility] Address [address] [place] [address] Care Team Providers Care Social Research Assistant Name Role Phone Raymond Johnson DO Primary Care Provider +1- [phone] Encounter Details Date Type Department Care Team (Latest Contact Info) Description 12/10/2005 Outpatient Historical [facility] Family Medicine [place] [address] [facility] [address] [place] [phone] Santiago Olivier NP NO ADDRESS ON FILE DM w/o Complication Type II (CMS/HCC) (Primary Dx) Social History Tobacco Use Types Packs/Day Years Used Date Smoking Tobacco: Never Assessed Comments Unknown Sex and Gender Information Value Date Recorded Sex Assigned at Not on file 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
--- OUTSIDE RECORDS SUMMARY | 2025-05-30 17:34 | XMS_ITS | Encounter Summary ---
Author Organization [facility] Address [address] [place] [address] Care Team Providers Care Chemistry Teacher Name Role Phone Raymond Johnson DO Primary Care Provider +1- [phone] Encounter Details Date Type Department Care Team (Latest Contact Info) Description 08/05/2002 Outpatient Historical [facility] Medicine [address] [phone] Erin Pablo MD [address] [place] [id number] CELLULITIS OF TRUNK (Primary Dx) Social History Tobacco Use Types Packs/Day Years Used Date Smoking Tobacco: Never Assessed Comments Unknown Sex and Gender Information Value Date Recorded Sex Assigned at Not on file 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
--- OUTSIDE RECORDS SUMMARY | 2025-05-30 17:34 | XMS_ITS | Encounter Summary ---
Author Organization [facility] Address [address] [place] [address] Care Team Providers Care Pmp Name Role Phone Raymond Johnson DO Primary Care Provider +1- [phone] Encounter Details Date Type Department Care Team (Latest Contact Info) Description 08/12/2002 Outpatient Historical [facility] Medicine [address] [phone] Erin Pablo MD [address] [place] [phone] CELLULITIS OF TRUNK (Primary Dx) Social History Tobacco Use Types Packs/Day Years Used Date Smoking Tobacco: Never Assessed Comments Unknown Sex and Gender Information Value Date Recorded Sex Assigned at Not on file 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
--- OUTSIDE RECORDS SUMMARY | 2025-05-30 17:34 | XMS_ITS | Encounter Summary ---
Author Organization [facility] Address [address] [place] [address] Care Team Providers Care Whale Fisherman Name Role Phone Raymond Johnson DO Primary Care Provider +1- [phone] Encounter Details Date Type Department Care Team (Latest Contact Info) Description 12/18/2005 Outpatient Historical [facility] Family Medicine [place] [address] [facility] [address] [place] [phone] Shannon Mena MD NO ADDRESS ON FILE DM w/o Complication Type II, Uncontrolled (Primary Dx); Elevated Blood Pressure Reading without Diagnosis of Hypertension; Other and Unspecified Hyperlipidemia Social History Tobacco Use Types Packs/Day Years Used Date Smoking Tobacco: Never Assessed Comments Unknown Sex and Gender Information Value Date Recorded Sex Assigned at Not on file Legal Sex Female 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
--- OUTSIDE RECORDS SUMMARY | 2025-05-30 17:34 | XMS_ITS | Encounter Summary ---
Author Organization [facility] Address [address] [place] [address] Care Team Providers Care Jewelry Sales Name Role Phone Alex Raymond John SAGASTUME Primary Care Provider +1- [phone] Encounter Details Date Type Department Care Team (Late st Contact Info) Description 07/30/2015 Lab Requisition [facility] General Laboratory Services [place] [address] [place] [phone] Ubaldo Hirsch, DO [address] [place] [address] Sick Social History Tobacco Use Types Packs/Day Years Used Date Smoking Tobacco: Every Day Cigarettes Alcohol Use Standard Drinks/Week Comments Yes 0 (1 standard drink = 0.6 oz pur e alcohol) social Comments No Sex and Gender Information Value Date Recorded Sex Assigned at Not on file Legal Sex Female 4:38 AM SERVICE UNIT OPERATOR OIL WELL Gender Identity Not on file Sexual Orientation Not on file documented as of this encounter Plan of Treatment Not on file documented as of this encounter Procedures Procedure Name Priority Date/Time Associated Diagnosis Comments CBC WITH DIFFERENTIAL Routine 07/30/2015 9:17 PM SERVICE UNIT OPERATOR OIL WELL Sick [ICD-10-CM] TSH Routine 07/30/2015 9:17 PM SERVICE UNIT OPERATOR OIL WELL Sick [ICD-10-CM] HEMOGLOBIN A1C Routine 07/30/2015 9:17 PM SERVICE UNIT OPERATOR OIL WELL Sick [ICD-10-CM] LIPID PANEL Routine 07/30/2015 9:17 PM SERVICE UNIT OPERATOR OIL WELL Sick [ICD-10-CM] COMPREHENSIVE METABOLIC PANEL Routine 07/30/2015 9:17 PM SERVICE UNIT OPERATOR OIL WELL Sick [ICD-10-CM] documented in this encounter Results * TSH (07/30/2015 9:17 PM SERVICE UNIT OPERATOR OIL WELL) TSH 1.39 0.27 - 4.20 uIU/mL 07/30/2015 10:29 PM SERVICE UNIT OPERATOR OIL WELL [facility] [employer] [facility] Blood Collection / Unknown 07/30/2015 9:17 PM SERVICE UNIT OPERATOR OIL WELL 07/30/2015 9:17 PM SERVICE UNIT OPERATOR OIL WELL us Ubaldo Hirsch DO CHEMISTRY ORDERABLES Final Resu lt [facility] [employer] [facility] CLIA # [id number] [address] [place] [address] * (ABNORMAL) LIPID PANEL (07/30/2015 9:17 PM SERVICE UNIT OPERATOR OIL WELL) CHOLESTEROL 214(H) <200 mg/dL 07/30/2015 10:29 PM SERVICE UNIT OPERATOR OIL WELL [facility] [employer] [facility] TRIGLYCERIDE 248(H) <150 mg/dL 07/30/2015 10:29 PM SERVICE UNIT OPERATOR OIL WELL [facility] [employer] [facility] HDL 28(L) 40 - 59 mg/dL 07/30/2015 10:29 PM [facility] rag & bone [facility] LDL CALCULATED 136(H) <100 mg/dL 07/30/2015 10:29 PM SERVICE UNIT OPERATOR OIL WELL [facility] [employer] [facility] NON-HDL CHOLESTEROL 186(H) <130 mg/dL 07/30/2015 10:29 PM SERVICE UNIT OPERATOR OIL WELL [facility] [employer] [facility] Blood Collection / Unknown 07/30/2015 9:17 PM SERVICE UNIT OPERATOR OIL WELL 07/30/2015 9:17 PM SERVICE UNIT OPERATOR OIL WELL Narrative [facility] LABORATORY [facility] [place] - 07/30/2015 10:29 PM SERVICE UNIT OPERATOR OIL WELL TOTAL CHOLESTEROL mg/dL Desirable <200 Borderline high 200-239 High >=240 TRIGLYCERIDES mg/dL Normal <150 Borderline high 150-199 High 200-499 Very high >=500 HDL CHOLESTEROL mg/dL Low <40 Normal 40-59 Desirable >=60 LDL CHOLESTEROL mg/dL Optimal <100 Low risk 100-129 Borderline high 130-159 High 160-189 Very high >=190 NON HDL CHOLESTEROL mg/dL Optimal <130 Near Optimal 130-159 Borderline High 160-189 High 190-219 Very high >=220 Based on AHA/NCEP Guidelines Ubaldo Goel [employer] DO CHEMISTRY ORDERABLES Final Resu lt Performing Organization Address City/[facility]/ZIP Co de Phone Number [facility] [place] CLIA # [id number] [address] [place] [address] * (ABNORMAL) HEMOGLOBIN A1C (07/30/2015 9:17 PM SERVICE UNIT OPERATOR OIL WELL) HEMOGLOBIN A1C 9.1(H) 4.8 - 5.9 % 07/30/2015 11:01 PM SERVICE UNIT OPERATOR OIL WELL [facility] [employer] [facility] EST. AVG GLUCOSE, A1C 214 mg/dL 07/30/2015 11:01 PM SERVICE UNIT OPERATOR OIL WELL [facility] [employer] Blood Collection / Unknown 07/30/2015 9:17 PM SERVICE UNIT OPERATOR OIL WELL 07/30/2015 9:17 PM SERVICE UNIT OPERATOR OIL WELL Ubaldo Goel [employer] DO CHEMISTRY ORDERABLES Final Resu lt Performing Organization Address City/[facility] Co de Phone Number [facility] [place] CLIA # [id number] [address] [place] [address] * (ABNORMAL) COMPREHENSIVE METABOLIC PANEL (07/30/2015 9:17 PM SERVICE UNIT OPERATOR OIL WELL) SODIUM 136 136 - 145 mmol/L 07/30/2015 10:29 PM SERVICE UNIT OPERATOR OIL WELL [facility] [employer] [place] POTASSIUM 3.9 3.5 - 5.1 mmol/L 07/30/2015 10:29 PM SERVICE UNIT OPERATOR OIL WELL [facility] [place] CHLORIDE 99 98 - 107 mmol/L 07/30/2015 10:29 PM SERVICE UNIT OPERATOR OIL WELL [facility] [employer] [place] CO2 21(L) 22 - 29 mmol/L 07/30/2015 10:29 PM SERVICE UNIT OPERATOR OIL WELL [facility] [place] CALCIUM 9.9 8.6 - 10.0 mg/dL 07/30/2015 10:29 PM SERVICE UNIT OPERATOR OIL WELL [email or web address] [facility] [place] BUN 8 6 - 20 mg/dL 07/30/2015 10:29 PM SERVICE UNIT OPERATOR OIL WELL [facility] [place] CREATININE 0.61 0.51 - 0.95 mg/dL 07/30/2015 10:29 PM SERVICE UNIT OPERATOR OIL WELL [email or web address] [facility] [place] GLUCOSE 186(H) 74 - 106 mg/dL 07/30/2015 10:29 PM SERVICE UNIT OPERATOR OIL WELL [facility] [place] TOTAL PROTEIN 7.8 6.6 - 8.7 g/dL 07/30/2015 10:29 PM SERVICE UNIT OPERATOR OIL WELL [facility] [place] ALBUMIN 4.7 3.5 - 5.2 g/dL 07/30/2015 10:29 PM SERVICE UNIT OPERATOR OIL WELL [facility] [place] BILIRUBIN TOTAL 0.5 0.0 - 1.2 mg/dL 07/30/2015 10:29 PM SERVICE UNIT OPERATOR OIL WELL [facility] [place] ALKALINE PHOSPHATASE 85 35 - 104 U/L 07/30/2015 10:29 PM SERVICE UNIT OPERATOR OIL WELL [facility] [place] AST 20 10 - 35 U/L 07/30/2015 10:29 PM SERVICE UNIT OPERATOR OIL WELL [facility] [place] ALT 25 10 - 35 U/L 07/30/2015 10:29 PM [employer] [facility] [place] GFR >60 >=60 mL/min/1.7 3 sq meter 07/30/2015 10:29 PM [facility] [place] Comment: eGFR has not been validated for use in the elderly (> 70 years of age), women, patients with serious co-morbid conditions, or persons with extremes of body size or muscle mass and should also be interpreted with caution in patients with acute kidney failure, dialysis dependent patients, patients reporting exceptional dietary intake (e.g. vegetarian diet, high protein diets, creatine supplementation), and patients with severe liver disease. Based on National Kidney Disease Education Program If patient is , please refer to the GFR result. GFR, >60 >=60 mL/min/1.7 3 sq meter 07/30/2015 10:29 PM [employer] [facility]AT[facility] [place] [place] ANION GAP 16 12 - 20 mmol/L 07/30/2015 10:29 PM SERVICE UNIT OPERATOR OIL WELL [facility] Blood Collection / Unknown 07/30/2015 9:17 PM SERVICE UNIT OPERATOR OIL WELL 07/30/2015 9:17 PM SERVICE UNIT OPERATOR OIL WELL us Ubaldo Hirsch DO CHEMISTRY ORDERABLES Final Resu lt [facility] [place] CLIA # [id number] [address] [place] [address], [place] [address] * (ABNORMAL) CBC WITH DIFFERENTIAL (07/30/2015 9:17 PM SERVICE UNIT OPERATOR OIL WELL) WBC 8.8 4.0 - 10.0 K/uL 07/30/2015 10:48 PM SERVICE UNIT OPERATOR OIL WELL [email or web address] [place] RBC 4.62 3.93 - 5.22 M/uL 07/30/2015 10:48 PM SERVICE UNIT OPERATOR OIL WELL [email or web address] [place] HEMOGLOBIN 14.4 11.2 - 15.7 g/dL 07/30/2015 10:48 PM [facility]ORATORY [facility] - [place] HEMATOCRIT 41.2 34.1 - 44.9 % 07/30/2015 10:48 PM [facility] [place] MCV 89.2 79.4 - 94.8 fL 07/30/2015 10:48 PM SERVICE UNIT OPERATOR OIL WELL [facility] [place] MCH 31.2 25.6 - 32.2 pg 07/30/2015 10:48 PM SERVICE UNIT OPERATOR OIL WELL [facility] [place] MCHC 35.0 32.2 - 35.5 g/dL 07/30/2015 10:48 PM SERVICE UNIT OPERATOR OIL WELL [email or web address] [place] RDW 12.2 11.0 - 14.5 % 07/30/2015 10:48 PM SERVICE UNIT OPERATOR OIL WELL [facility] [place] RDW-STDEV 39.3 36.9 - 56.9 fL 07/30/2015 10:48 PM SERVICE UNIT OPERATOR OIL WELL [email or web address] [place] PLATELETS 207 163 - 337 K/uL 07/30/2015 10:48 PM SERVICE UNIT OPERATOR OIL WELL [email or web address] [place] MPV 11.4 10.0 - 14.8 fL 07/30/2015 10:48 PM SERVICE UNIT OPERATOR OIL WELL [email or web address] [place] NEUTROPHILS 56 34 - 71 % 07/30/2015 10:48 PM SERVICE UNIT OPERATOR OIL WELL [facility] [place] LYMPHOCYTES 33 19 - 52 % 07/30/2015 10:48 PM SERVICE UNIT OPERATOR OIL WELL [facility] [place] MONOCYTES 9 5 - 13 % 07/30/2015 10:48 PM SERVICE UNIT OPERATOR OIL WELL [facility] [place] EOSINOPHILS 1 1 - 6 % 07/30/2015 10:48 PM SERVICE UNIT OPERATOR OIL WELL [facility] [place] BASOPHILS 1 0 - 1 % 07/30/2015 10:48 PM SERVICE UNIT OPERATOR OIL WELL [facility] [place] NEUTROPHIL ABSOLUTE 4.96 1.56 - 6.13 K/uL 07/30/2015 10:48 PM SERVICE UNIT OPERATOR OIL WELL [facility] [place] LYMPHOCYTE ABSOLUTE 2.93 1.20 - 3.40 K/uL 07/30/2015 10:48 PM SERVICE UNIT OPERATOR OIL WELL [facility] [place] MONOCYTE ABSOLUTE 0.77(H) 0.24 - 0.36 K/uL 07/30/2015 10:48 PM SERVICE UNIT OPERATOR OIL WELL [facility] [place] EOSINOPHIL ABSOLUTE 0.11 0.04 - 0.36 K/uL 07/30/2015 10:48 PM SERVICE UNIT OPERATOR OIL WELL [facility] [place] BASOPHILS ABSOLUTE 0.04 0.01 - 0.08 K/uL 07/30/2015 10:48 PM SERVICE UNIT OPERATOR OIL WELL [facility] [place] IMMATURE GRANULOCYTES 0 % 07/30/2015 10:48 PM SERVICE UNIT OPERATOR OIL WELL [facility] [place] IMMATURE GRANULOCYTES ABSOLUTE 0.02 K/uL 07/30/2015 10:48 PM SERVICE UNIT OPERATOR OIL WELL [facility] [place] Blood Collection / Unknown 07/30/2015 9:17 PM SERVICE UNIT OPERATOR OIL WELL 07/30/2015 9:17 PM SERVICE UNIT OPERATOR OIL WELL us Ubaldo Hirsch DO HEMATOLOGY ORDERABLES Final Res ult [facility] [place] CLIA # [id number] [address] [place] [address] documented in this encounter Visit Diagnoses Diagnosis Sick Other unknown and unspecified cause of morbidity or mortality documented in this encounter Care Teams Jewelry Sales Relationship Specialty Start Date End Date Raymond Johnson DO PCP - General Family Practice 10/21/13 documented as of this encounter
--- OUTSIDE RECORDS SUMMARY | 2025-05-30 17:34 | XMS_ITS | Encounter Summary ---
Author Organization [facility] Address [address] [place] [address] Care Team Providers Care Production Grip Name Role Phone Raymond Johnson DO Primary Care Provider +1- [phone] Encounter Details Date Type Department Care Team (Latest Contact Info) Description 06/09/[address] [address] Erin Pablo MD [address] [place] [address], [address] HYPERTENSION NOS (Primary Dx) Social History Tobacco Use Types Packs/Day Years Used Date Smoking Tobacco: Never Assessed Comments Unknown Sex and Gender Information Value Date Recorded Sex Assigned at Not on file Legal Sex 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
--- OUTSIDE RECORDS SUMMARY | 2025-05-30 17:34 | XMS_ITS | Encounter Summary ---
Author Organization [facility] Address [address] [place] [address] Care Team Providers Care Test Kitchen Home Economist Name Role Phone Raymond Johnson Primary Care Provider +1- [phone] Encounter Details Date Type Department Care Team (Late st Contact Info) Description 12/31/2015 Lab Requisition [facility] Laboratory Services [place] [address] [place] [address] Damaris Zavala, KETTLE SKIMMER [address] [place] [address] Illness Social History Tobacco Use Types Packs/Day Years Used Date Smoking Tobacco: Every Day Cigarettes Alcohol Use Standard Drinks/Week Comments Yes 0 (1 standard drink = 0.6 oz pur e alcohol) social Comments No Sex and Gender Information Value Date Recorded Sex Assigned at Not on file 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 Gender Identity Not on file Sexual Orientation Not on file documented as of this encounter Plan of Treatment Not on file documented as of this encounter Procedures Procedure Name Priority Date/Time Associated Diagnosis Comments MICROALBUMIN/CREATIN INE RATIO, RANDOM UR Routine 12/31/2015 8:56 PM CDT Illness ALT Routine 12/31/2015 8:56 PM CDT Illness HEMOGLOBIN A1C Routine 12/31/2015 8:56 PM CDT Illness LIPID PANEL Routine 12/31/2015 8:56 PM CDT Illness documented in this encounter Results * MICROALBUMIN/CREATININE RATIO, RANDOM UR (12/31/2015 8:56 PM CDT) MICROALBUMIN, URINE <1.2 mg/dL 12/31/2015 9:39 PM CDT [facility] CREATININE, URINE 120.2 29.0 - 226.0 mg/dL 12/31/2015 9:39 PM CDT [facility] Comment: Reference Range varies with fluid intake and diet. MICROALBUMIN/CR EAT RATIO, UR mg/g Creatinine 12/31/2015 9:39 PM CDT [facility] Comment: Condition mg/g Creatinine Normal Males <17 Normal Females <25 Microalbuminuria Males 17-299 Microalbuminuria Females 25-299 Overt proteinuria >=300 Urine URINE SPECIMEN OBTAINED BY CLEAN CATCH PROCEDURE / Unknown Collection / Unknown 12/31/2015 8:56 PM CDT 12/31/2015 8:56 PM CDT Damaris Zavala KETTLE SKIMMER URINE ORDERABLES Final Result [id number] [address] [place] [address] * (ABNORMAL) LIPID PANEL (12/31/2015 8:56 PM CDT) CHOLESTEROL 212(H) <200 mg/dL 12/31/2015 9:43 PM CDT [facility] TRIGLYCERIDE 165(H) <150 mg/dL 12/31/2015 9:43 PM CDT [facility] HDL 36(L) 40 - 59 mg/dL 12/31/2015 9:43 PM CDT [facility] LDL CALCULATED 143(H) <100 mg/dL 12/31/2015 9:43 PM CDT [facility] [employer] [facility] NON-HDL CHOLESTEROL 176(H) <130 mg/dL 12/31/2015 9:43 PM CDT [facility] [employer] [facility] Blood Collection / Unknown 12/31/2015 8:56 PM CDT 12/31/2015 8:56 PM CDT Narrative [facility] LABORATORY [facility] - 12/31/2015 9:43 PM CDT TOTAL CHOLESTEROL mg/dL Desirable <200 Borderline high [...] Very high >=220 Based on AHA/NCEP Guidelines Damaris Zavala [facility] CHEMISTRY ORDERABLES Final Resu lt Performing Organization Address [facility] de Phone Number [facility] [employer] [facility] CLIA # [id number] [address] [place] [address] * (ABNORMAL) HEMOGLOBIN A1C (12/31/2015 8:56 PM CDT) HEMOGLOBIN A1C 6.4(H) 4.8 - 5.9 % 12/31/2015 9:34 PM CDT [facility] [employer] [facility] EST. AVG GLUCOSE, A1C 137 mg/dL 12/31/2015 9:34 PM CDT [facility] [employer] [facility] Blood Collection / Unknown 12/31/2015 8:56 PM CDT 12/31/2015 8:56 PM CDT Damaris Zavala [facility] CHEMISTRY ORDERABLES Final Resu lt Performing Organization Address City/[facility]/ZIP Co de Phone Number [facility] [employer] [facility] CLIA # [id number] [address] [place] [address] * ALT (12/31/2015 8:56 PM CDT) ALT 22 10 - 35 U/L 12/31/2015 9:43 PM CDT [facility] LABORATORY [facility] Blood Collection / Unknown 12/31/2015 8:56 PM CDT 12/31/2015 8:56 PM CDT Damaris Zavala KETTLE SKIMMER CHEMISTRY ORDERABLES Final Resu lt [facility] LABOR[facility] CLIA # [id number] [address] [place] [address] documented in this encounter Visit Diagnoses Diagnosis Illness Other unknown and unspecified cause of morbidity or mortality documented in this encounter Care Teams Test Kitchen Home Economist Relationship Specialty Start Date End Date Raymond Johnson DO PCP - General Family Practice 10/21/13 documented as of this encounter
--- OUTSIDE RECORDS SUMMARY | 2025-05-30 17:34 | XMS_ITS | Encounter Summary ---
Author Organization [facility] Address [address] [place] [address] Care Team Providers Care Fashion Buying Internship Name Role Phone Raymond Johnson Primary Care Provider +1- [phone] Encounter Details Date Type Department Care Team (Late st Contact Info) Description 06/09/2016 Lab Requisition [facility] Laboratory Services [place] [address] [place] [phone] Fox Jimenez DO NO ADDRESS ON FILE Social History Tobacco Use Types Packs/Day Years Used Date Smoking Tobacco: Every Day Cigarettes Alcohol Use Standard Drinks/Week Comments Yes 0 (1 standard drink = 0.6 oz pur e alcohol) social Comments No Sex and Gender Information Value Date Recorded Sex Assigned at Not on file Legal 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 TRIGLYCERIDE 561(H) <150 mg/dL 06/09/2016 10:[address] [facility] HDL 21(L) 40 - 59 mg/dL 06/09/2016 10:[address] [facility] LDL CALCULATED <100 mg/dL 06/09/2016 10:46 PM [facility] Comment:Calculated LDL is no t accurate when the Triglyceride value exceeds 400. NON-HDL CHOLESTEROL 163(H) <130 mg/dL 06/09/2016 10:46 PM [facility] Blood Collection / Unknown 06/09/2016 9:32 PM CDT 06/09/2016 9:49 PM CDT [facility] - 06/09/2016 10:46 PM CDT TOTAL CHOLESTEROL mg/dL Desirable <200 Borderline high 200-239 High >=240 TRIGLYCERIDES mg/dL Normal <150 Borderline high 150-199 High 200-499 Very high >=500 HDL CHOLESTEROL mg/dL Low <40 Normal 40-59 Desirable >=60 NON HDL CHOLESTEROL mg/dL Optimal <130 Near Optimal 130-159 Borderline High 160-189 Very High >=190 Calculated LDL mg/dL Optimal <100 Near Optimal 100-129 Borderline High 130-159 High 160-189 Very High >=190 ATPIII Guidelines Reference Ranges for Lipid Panels (NCEP/AMA) us Fox Jimenez DO CHEMISTRY ORDERABLES Final R esult [facility] CLIA # [id number] [address] [place] [address] * (ABNORMAL) HEMOGLOBIN A1C (06/09/2016 9:32 PM CDT) HEMOGLOBIN A1C 7.7(H) 4.8 - 5.9 % 06/09/2016 10:[address] [facility] EST. AVG GLUCOSE, A1C 174 mg/dL 06/09/2016 10:39 PM [facility] Blood Collection / Unknown 06/09/2016 9:32 PM CDT 06/09/2016 9:49 PM CDT us Fox Jimenez DO CHEMISTRY ORDERABLES Final R esult [id number] [address] [place] [address] * ALT (06/09/2016 9:32 PM CDT) ALT 16 10 - 35 U/L 06/09/2016 10:[address] [facility] Blood Collection / Unknown 06/09/2016 9:32 PM CDT 06/09/2016 9:49 PM CDT us Fox Jimenez DO CHEMISTRY ORDERABLES Final R esult Performing Organization Address City/[facility] Co de Phone Number [facility] [id number] [address] [place] [address] documented in this encounter Visit Diagnoses Not on filedocumented in this encounter Care Teams Fashion Buying Internship Relationship Specialty Start Date End Date Raymond Johnson DO PCP - General Family Practice 10/21/13 documented as of this encounter
--- OUTSIDE RECORDS SUMMARY | 2025-05-30 17:34 | XMS_ITS | Encounter Summary ---
Author Organization [facility] Address [address] [place] [address] Care Team Providers Care Internal Combustion Engine Subassembler Name Role Phone Raymond Johnson Primary Care Provider +1- [phone] Encounter Details Date Type Department Care Team (Late st Contact Info) Description 01/12/2017 Lab Requisition [facility] General Laboratory Services [place] [address] [place] [address] Tyrese Tse DO NO ADDRESS ON FILE Social History Tobacco Use Types Packs/Day Years Used Date Smoking Tobacco: Every Day Cigarettes Alcohol Use Standard Drinks/Week Comments Yes 0 (1 standard drink = 0.6 oz pur e alcohol) social Comments No Sex and Gender Information Value Date Recorded Sex Assigned at Not on file Legal Sex Female 4:38 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 Gender Identity Not on file Sexual Orientation Not on file documented as of this encounter Plan of Treatment Not on file documented as of this encounter Procedures Procedure Name Priority Date/Time Associated Diagnosis Comments HEMOGLOBIN A1C Routine 01/12/2017 8:45 PM CDT COMPREHENSIVE METABOLIC PANEL Routine 01/12/2017 8:45 PM CDT documented in this encounter Results * (ABNORMAL) COMPREHENSIVE METABOLIC PANEL (01/12/2017 8:45 PM CDT) SODIUM 140 136 - 145 mmol/L 01/13/2017 1:52 AM CDT [facility] POTASSIUM 4.0 3.5 - 5.1 mmol/L 01/13/2017 1:52 AM [facility] CHLORIDE 100 98 - 107 mmol/L 01/13/2017 1:52 AM [facility] CO2 25 22 - 29 mmol/L 01/13/2017 1:52 AM [facility] CALCIUM 10.1(H) 8.6 - 10.0 mg/dL 01/13/2017 1:52 AM [facility] BUN 13 6 - 20 mg/dL 01/13/2017 1:52 AM [facility] CREATININE 0.75 0.51 - 0.95 mg/dL 01/13/2017 1:52 AM [facility] GLUCOSE 108(H) 74 - 106 mg/dL 01/13/2017 1:52 AM [facility] TOTAL PROTEIN 7.3 6.6 - 8.7 g/dL 01/13/2017 1:52 AM [facility] ALBUMIN 4.3 3.5 - 5.2 g/dL 01/13/2017 1:52 AM [facility] BILIRUBIN TOTAL 0.2 0.0 - 1.2 mg/dL 01/13/2017 1:52 AM [facility] ALKALINE PHOSPHATASE 72 35 - 104 U/L 01/13/2017 1:52 AM [facility] AST 13 10 - 35 U/L 01/13/2017 1:52 AM [facility] ALT 14 10 - 35 U/L 01/13/2017 1:52 AM [facility] GFR >60 >=60 mL/min/1.7 3 sq meter 01/13/2017 1:52 AM [facility] Comment: eGFR has not been validated for [...] GFR, >60 >=60 mL/min/1.7 3 sq meter 01/13/2017 1:52 AM CDT [facility] ANION GAP 15 12 - 20 mmol/L 01/13/2017 1:52 AM CDT [facility] Blood 01/12/2017 8:45 PM CDT 01/13/2017 12:57 AM CDT us Tyrese Tse DO CHEMISTRY ORDERABLES Final Resu lt Performing Organization Address City/[facility]/ZIP Co de Phone Number [facility] CLIA # [id number] [address] [place] [address] * (ABNORMAL) HEMOGLOBIN A1C (01/12/2017 8:45 PM CDT) HEMOGLOBIN A1C 6.7(H) 4.8 - 5.9 % 01/13/2017 1:55 AM CDT [facility] EST. AVG GLUCOSE, A1C 146 mg/dL 01/13/2017 1:55 AM CDT [facility] Blood 01/12/2017 8:45 PM CDT 01/13/2017 12:57 AM CDT us Tyrese Tse DO CHEMISTRY ORDERABLES Final Resu lt Performing Organization Address [facility]/ZIP Co de Phone Number [facility] CLIA # [id number] [address] [place] [address] documented in this encounter Visit Diagnoses Not on filedocumented in this encounter Care Teams Internal Combustion Engine Subassembler Relationship Specialty Start Date End Date Raymond Johnson DO PCP - General Family Practice 10/21/13 documented as of this encounter
--- OUTSIDE RECORDS SUMMARY | 2025-05-30 17:34 | XMS_ITS | Encounter Summary ---
Author Organization [facility] Address [address] [place] [address] Care Team Providers Care Irrigation Laborer Name Role Phone Raymond Johnson DO Primary Care Provider +1- [phone] Encounter Details Date Type Department Care Team (Latest Contact Info) Description 12/27/2004 Outpatient Historical [facility] Family Medicine [place] [address] [facility] [address] [place] [phone] Santiago Olivier NP NO ADDRESS ON FILE HEADACHE (Primary Dx); VISUAL DISCOMFORT; ACUTE PHARYNGITIS Social History Tobacco Use Types Packs/Day Years Used Date Smoking Tobacco: Never Assessed Comments Unknown Sex and Gender Information Value Date Recorded Sex Assigned at Not on file Legal Sex Female 4:38 AM TIN POURER Gender Identity Not on file Sexual Orientation Not on file documented as of this encounter Plan of Treatment Not on file documented as of this encounter Visit Diagnoses Diagnosis Headache(784.0)- Primary Headache Visual discomfort Acute pharyngitis documented in this encounter Care Teams Irrigation Laborer Relationship Specialty Start Date End Date Raymond Johnson DO PCP - General Family Practice 10/21/13 documented as of this encounter
--- OUTSIDE RECORDS SUMMARY | 2025-05-30 17:34 | XMS_ITS | Encounter Summary ---
Author Organization [facility] Address [address] [place] [address] Care Team Providers Care Coil Tier Name Role Phone Raymond Johnson DO Primary Care Provider +1- [phone] Encounter Details Date Type Department Care Team (Latest Contact Info) Description 08/17/2001 Outpatient Historical [facility] Medicine [place] [address], [place] [address] Baljinder Acosta MD [address] [address] HYPERTENSION NOS (Primary Dx); Irregular menstruation Social History Tobacco Use Types Packs/Day Years Used Date Smoking Tobacco: Never Assessed Comments Unknown Sex and Gender Information Value Date Recorded Sex Assigned at Not on file Legal Sex Female 4:38 AM TRANSONIC ENGINEER Gender Identity Not on file Sexual Orientation Not on file documented as of this encounter Plan of Treatment Not on file documented as of this encounter Visit Diagnoses Diagnosis Unspecified essential hypertension- Primary Irregular menstruation Irregular menstrual cycle documented in this encounter Care Teams Coil Tier Relationship Specialty Start Date End Date Raymond Johnson DO PCP - General Family Practice 10/21/13 documented as of this encounter
--- OUTSIDE RECORDS SUMMARY | 2025-05-30 17:34 | XMS_ITS | Encounter Summary ---
Author Organization [facility] Address [address] [place] [address] Care Team Providers Care Commodity Trader Name Role Phone Raymond Johnson Primary Care Provider +1- [phone] Encounter Details Date Type Department Care Team (Late st Contact Info) Description 10/01/2015 Lab Requisition [facility] Laboratory Services [place] [address] [place] [address] Seble Smith, MASSOTHERAPIST [address] [place] [address] Social History Tobacco Use Types Packs/Day Years Used Date Smoking Tobacco: Every Day Cigarettes Alcohol Use Standard Drinks/Week Comments Yes 0 (1 standard drink = 0.6 oz pur e alcohol) social Comments No Sex and Gender Information Value Date Recorded Sex Assigned at Not on file Legal Sex Female 4:38 AM BUCKET CHUCKER Gender Identity Not on file Sexual Orientation Not on file documented as of this encounter Plan of Treatment Not on file documented as of this encounter Procedures Procedure Name Priority Date/Time Associated Diagnosis Comments ALT Routine 10/01/2015 8:45 PM BUCKET CHUCKER HEMOGLOBIN A1C Routine 10/01/2015 8:45 PM BUCKET CHUCKER CK Routine 10/01/2015 8:45 PM BUCKET CHUCKER BASIC METABOLIC PANEL Routine 10/01/2015 8:45 PM BUCKET CHUCKER documented in this encounter Results * (ABNORMAL) HEMOGLOBIN A1C (10/01/2015 8:45 PM BUCKET CHUCKER) HEMOGLOBIN A1C 7.5(H) 4.8 - 5.9 % 10/01/2015 11:45 PM BUCKET CHUCKER [facility] [place] EST. AVG GLUCOSE, A1C 169 mg/dL 10/01/2015 11:45 PM BUCKET CHUCKER [facility] [place] Blood 10/01/2015 8:45 PM BUCKET CHUCKER 10/01/2015 11:05 PM BUCKET CHUCKER [facility] CHEMISTRY ORDERABLES Final Result Performing Organization Address [facility]/ZIP Co de Phone Number [facility] [place] CLIA # [id number] [address] [place] [address] * CK (10/01/2015 8:45 PM BUCKET CHUCKER) CK 58 26 - 192 U/L 10/02/2015 12:05 AM BUCKET CHUCKER [facility] [place] Blood 10/01/2015 8:45 PM BUCKET CHUCKER 10/01/2015 11:05 PM BUCKET CHUCKER Seble [employer] [facility] CHEMISTRY ORDERABLES Final Result Performing Organization Address City/[facility]/ZIP Co de Phone Number [facility] [place] CLIA # [id number] [address] [place] [address] * (ABNORMAL) BASIC METABOLIC PANEL (10/01/2015 8:45 PM BUCKET CHUCKER) SODIUM 140 136 - 145 mmol/L 10/02/2015 12:05 AM BUCKET CHUCKER [facility] [place] POTASSIUM 4.1 3.5 - 5.1 mmol/L 10/02/2015 12:05 AM BUCKET CHUCKER [facility] [place] CHLORIDE 100 98 - 107 mmol/L 10/02/2015 12:05 AM BUCKET CHUCKER [facility] [place] CO2 25 22 - 29 mmol/L 10/02/2015 12:05 AM BUCKET CHUCKER [facility] [place] CALCIUM 9.9 8.6 - 10.0 mg/dL 10/02/2015 12:05 AM [facility] [employer] [facility] BUN 9 6 - 20 mg/dL 10/02/2015 12:05 AM [facility] [employer] [facility] CREATININE 0.70 0.51 - 0.95 mg/dL 10/02/2015 12:05 AM [facility] [employer] [facility] GLUCOSE 107(H) 74 - 106 mg/dL 10/02/2015 12:05 AM [facility] [employer] [facility] GFR >60 >=60 mL/min/1.7 3 sq meter 10/02/2015 12:05 AM [facility] [employer] [facility] Comment: eGFR has not been validated for [...] GFR, >60 >=60 mL/min/1.7 3 sq meter 10/02/2015 12:05 AM [facility] ANION GAP 15 12 - 20 mmol/L 10/02/2015 12:05 AM [facility] [employer] [facility] Blood 10/01/2015 8:45 PM BUCKET CHUCKER 10/01/2015 11:05 PM BUCKET CHUCKER Seble Smith MASSOTHERAPIST CHEMISTRY ORDERABLES Final Result [facility] [employer] [facility] CLIA # [id number] [address] [place] [address] * ALT (10/01/2015 8:45 PM BUCKET CHUCKER) ALT 22 10 - 35 U/L 10/02/2015 12:05 AM [facility] [employer] [facility] Blood 10/01/2015 8:45 PM BUCKET CHUCKER 10/01/2015 11:05 PM BUCKET CHUCKER us Seble Smith MASSOTHERAPIST CHEMISTRY ORDERABLES Final Result Performing Organization Address City/State/[facility] Co de Phone Number [facility] [place] CLIA # [id number] [address] [place] [address] documented in this encounter Visit Diagnoses Not on filedocumented in this encounter Care Teams Commodity Trader Relationship Specialty Start Date End Date Raymond Johnson DO PCP - General Family Practice 10/21/13 documented as of this encounter
--- OUTSIDE RECORDS SUMMARY | 2025-05-30 17:34 | XMS_ITS | Encounter Summary ---
Author Organization [facility] Address [address] [place] [address] Care Team Providers Care Multifocal Lens Assembler Name Role Phone Raymond Johnson DO Primary Care Provider +1- [phone] Encounter Details Date Type Department Care Team (Late st Contact Info) Description 06/09/2003 Outpatient Historical [address] [address] Erin Pablo MD [address] [place] [address] Social History Tobacco Use Types Packs/Day Years Used Date Smoking Tobacco: Never Assessed Comments Unknown Sex and Gender Information Value Date Recorded Sex Assigned at Not on file Legal Sex Female 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
--- OUTSIDE RECORDS SUMMARY | 2025-05-30 17:34 | XMS_ITS | Encounter Summary ---
Author Organization [facility] Address [address] [place] [address] Care Team Providers Care Eyeletter Name Role Phone Raymond Johnson DO Primary Care Provider +1- [phone] Encounter Details Date Type Department Care Team (Latest Contact Info) Description 04/05/2004 Outpatient Historical [facility] Family Medicine [place] [address] [facility] [place] [address] [place] [phone] Santiago Olivier NP NO ADDRESS ON FILE INFEC OTITIS EXTERNA NOS (Primary Dx); HYPERTENSION NOS Social History Tobacco Use Types Packs/Day Years Used Date Smoking Tobacco: Never Assessed Comments Unknown Sex and Gender Information Value Date Recorded Sex Assigned at Not on file Legal Sex Female 4:38 AM HUMIDIFIER OPERATOR Gender Identity Not on file Sexual Orientation Not on file documented as of this encounter Plan of Treatment Not on file documented as of this encounter Visit Diagnoses Diagnosis Infective otitis externa, unspecified- Primary Unspecified essential hypertension documented in this encounter Care Teams Eyeletter Relationship Specialty Start Date End Date Raymond Johnson DO PCP - General Family Practice 10/21/13 documented as of this encounter
--- OUTSIDE RECORDS SUMMARY | 2025-05-30 17:34 | XMS_ITS | Clinical Summary ---
Author Organization [facility] Address [address] [facility] Attn: Epic Prelude ADT CHELA BANERJEE [address] Care Team Providers Care Cnc Machine Operator Name Role Phone Gela Hoskins MD Primary Care Provider [phone]- [phone] Allergies Active Allergy Reactions Criticality Noted Date Comments Latex Itching 02/08/2015 Latex Itching Low 12/28/2009 Medications aspirin (BECCA) 325 mg tablet Take 325 mg by mouth daily. 0 Active atorvastatin (LIPITOR) 10 mg tablet Take 40 mg by mouth daily with supper. 0 Active ibuprofen (MOTRIN) 800 mg tablet Take 800 mg by mouth every 6 hours as needed for Pain, Mild. 7 Active insulin glargine,hum.re c.anlog (LANTUS SUBCUT) Inject 20 Units by subcutaneous injection 2 times daily. Active Blood-Glucose Transmitter (Dexcom G6 Transmitter) Device 1 Each by Misc.(Non-Drug; Combo Route) route daily. Active Blood-Glucose Sensor (Dexcom G6 Sensor) Device 1 Each by Misc.(Non-Drug; Combo Route) route every 10 days. Active dulaglutide (TRULICITY) 0.75 mg/0.5 mL injection Inject 0.5 mL (0.75 mg) by subcutaneous injection every 7 days. 2 mL 2 4 Active Additional Information Patient not taking.Reported on 06/21/2024 DULoxetine (CYMBALTA) 60 mg Capsule, Delayed Release(E.C.)In dications:Recur rent major depressive disorder, in partial remission Take 1 Capsule (60 mg) by mouth daily. 90 Capsule 3 4 Active HYDROcodone-esther taminophen (NORCO) 5-325 mg tablet Take 1 Tablet by mouth every 6 hours as needed. 4 Active Narcan 4 mg/actuation Voss, Non-Aerosol Administer 4 mg in one nostril (alternate nostril with each dose) one time as needed. 4 Active ondansetron (ZOFRAN) 4 mg Tablet Take 4 mg by mouth every 6 hours as needed for Nausea. 4 Active atorvastatin (LIPITOR) 40 mg tablet Take 1 Tablet by mouth daily. 4 Active Ergocalciferol, Vitamin D2, 10 mcg (400 unit) TabletIndicatio ns:Vitamin D deficiency Take 1 Tablet (400 Units) by mouth daily. 90 Tablet 3 4 Active insulin lispro (HumaLOG,ADMELO G) 100 unit/mL pen syringe Inject 10 Units by subcutaneous injection 3 times daily with meals. 15 mL 3 4 Active Dexcom G6 Hand Grinder TO monitor type ONE insulin dependent diabetes 1 Each 3 4 Active Active Problems Problem Noted Date Diagnosed Date Benign hypertension 06/17/2024 Tobacco use 06/03/2024 Mixed hyperlipidemia 06/03/2024 Diverticulosis 06/03/2024 Vitamin D deficiency 05/19/2024 Type 2 diabetes mellitus, wi th long-term current use of insulin 05/19/2024 Recurrent major depressive disorder, in partial remission 05/19/2024 Obesity (BMI 30.0-34.9) 05/19/2024 Total Hysterectomy 05/19/2024 Encounters Date Type Department Care Team Description 05/09/2025 External Device Data STL ABSTRACTION Provider, Abstract 04/12/2025 External Device Data STL ABSTRACTION Provider, Abstract 04/11/2025 External Device Data STL ABSTRACTION Provider, Abstract 03/21/2025 External Device Data STL ABSTRACTION Provider, Abstract 03/15/2025 External Device Data STL ABSTRACTION Provider, Abstract from Last 3 Months Family History Medical History Relation Name Comments High Cholesterol Brother 1 Hypertension Brother 1 Hypertension Brother 2 Hypertension Daughter Diabetes Father Heart Surgery Father Relation Name Status Comments Brother 1 Alive Brother 2 Alive Daughter Alive Father Alive Mother Social History Tobacco Use Types Packs/Day Years Used Date Smoking Tobacco: Every Day Cigarettes 0.5 22 Started: 05/19/2003 Smokeless Tobacco: Never Tobacco Cessation:Ready to Q uit: Yes; Counseling Given: Yes Alcohol Use Standard Drinks/Week Comments Not Currently 0 (1 standard drink = 0.6 oz pur e alcohol) Comments Unknown Sex and Gender Information Value Date Recorded Sex Assigned at Not on file Legal Sex Female 1:51 PM FACTORER Gender Identity Not on file Sexual Orientation Not on file Last Filed Vital Signs Vital Sign Reading Time Taken Comments Blood Pressure 130/80 06/21/2024 3:40 PM CDT Pulse 85 06/21/2024 3:40 PM CDT Temperature 36.2 C (97.2 F) 06/21/2024 3:40 PM CDT Respiratory Rate 19 06/21/2024 3:40 PM CDT Oxygen Saturation 100% 06/21/2024 3:40 PM CDT Inhaled Oxygen Concentration - - Weight 86.2 kg (190 lb) 06/21/2024 3:40 PM CDT Height 160 cm (5' 3 ) 06/21/2024 3:40 PM CDT Body Mass Index 33.66 06/21/2024 3:40 PM CDT Plan of Treatment Health Maintenance Due Date Last Done Comments DTAP/TDAP/TD VACCINES (1 - Tdap) 1994 HEPATITIS B VACCINES (1 of 3 - 19+ 3-dose series) 1994 Preventative Visit-Managed Medicaid 1994 COLORECTAL SCREENING 2020 FIT-DNA Q 3 years 2020 Flex Sig/CT Colonography Q 5 years 2020 DIABETES: A1C (Auto Order) 08/19/202405/19, 04/27/2024, 03/15/2024, Additional history exists DIABETES HBA1C Q 6 MONTHS 11/19/20242023, 04/27/2024, 03/15/2024, Additional history exists DIABETES ANNUAL RETINAL EXAM 04/28/2025 04/28/2024 INFLUENZA VACCINE (#1) 2025 06/21/2024 BREAST CANCER SCREENING 05/02/2025 05/02/2024 Colorectal Cancer Screening 05/19/2025 FIT/FOBT Q 1 year 05/19/2025 05/19/2024 LDL CHOLESTEROL ANNUAL 05/19/2025 , 04/27/2024, 03/15/2024, Additional history exists DIABETES ANNUAL FOOT EXAM 06/21/2025 06/21/2024 DIABETES MICROALBUMIN ANNUAL SCREEN 06/21/2025 06/21/2024, 03/15/2024, 12/30/2022, Additional history exists Procedures Procedure Name Priority Date/Time Associated Diagnosis Comments MICROALBUMIN/CREATIN INE RATIO, RANDOM UR Routine 06/21/2024 4:11 PM CDT Type 2 diabetes mellitus with diabetic polyneuropathy, with long-term current use of insulin ([facility]) LIPID PANEL Routine 05/19/2024 3:20 PM CDT Lipid screening HEMOGLOBIN A1C Routine 05/19/2024 3:20 PM CDT Type 2 diabetes mellitus with diabetic polyneuropathy, with long-term current use of insulin ([facility]) OCCULT BLOOD IMMUNOASSAY, COLORECTAL SCREEN Routine 05/19/2024 12:00 AM CDT Encounter for colorectal cancer screening MAMMO SCREEN BILAT W OR WO CAD Routine 05/02/2024 3:15 PM CDT HM DIABETES EYE EXAM Routine 04/28/2024 12:07 PM CDT from Last 3 Months or Most Recently Relevant to Health Maintenance Results * (ABNORMAL) MICROALBUMIN/CREATININE RATIO, RANDOM UR (06/21/2024 4:11 PM CDT) Creatinine, Urine 13(L) 20 - 275 mg/dL [facility] MICROALBUMIN, URINE <0.2 See Note: mg/dL [facility] Comment: Reference Range: Reference Range Not established MICROALBUMIN/CREAT RATIO, UR NOTE <30 mg/g creat [facility] Comment: NOTE: The urine albumin value is less than 0.2 mg/dL therefore we are unable to calculate excretion and/or creatinine ratio. The ADA defines abnormalities in albumin excretion as follows: Albuminuria Category Result (mg/g creatinine) Normal to Mildly increased <30 Moderately increased 30-299 Severely increased > OR = 300 The ADA recommends that at least two of three specimens collected within a 3-6 month period be abnormal before considering a patient to be within a diagnostic category. Test Performed at: [facility] [address] [facility] [place] [address] Jenna Medrano MD Urine URINE SPECIMEN OBTAINED BY CLEAN CATCH PROCEDURE / Unknown 06/21/2024 4:11 PM CDT 06/22/2024 6:40 AM CDT us Gela Hoskins MD URINE ORDERABLES Final Res ult [facility] [phone] [facility] [address] [place] [address] * (ABNORMAL) HEMOGLOBIN A1C (05/19/2024 3:20 PM CDT) HEMOGLOBIN A1C 8.0(H) <5.7 % of total Hgb [facility] Comment: For someone without known diabetes, a hemoglobin A1c value of 6.5% or greater indicates that they may have diabetes and this should be confirmed with a follow-up test. For someone with known diabetes, a value <7% indicates that their diabetes is well controlled and a value greater than or equal to 7% indicates suboptimal control. A1c targets should be individualized based on duration of diabetes, age, comorbid conditions, and other considerations. Currently, no consensus exists regarding use of hemoglobin A1c for diagnosis of diabetes for children. ESTIMATED AVERAGE GLUCOSE (MG/DL) 183 mg/dL [facility] ESTIMATED AVERAGE GLUCOSE (MMOL/L) 10.1 mmol/L [facility] Comment: This test was performed on the Danuta nu c503 platform. Effective 12/14/23, a change in test platforms from the [employer]ell [employer] Product Cutting Machine Operator to the Danuta nu c503 may have shifted HbA1c results compared to historical results. Based on laboratory validation testing conducted at [facility], the Danuta platform relative to the Odell platform had an average increase in HbA1c value of < or = 0.3%. This difference is within accepted variability established by the National Glycohemoglobin Standardization Program. Note that not all individuals will have had a shift in their results and direct comparisons between historical and current results for testing conducted on different platforms is not recommended. Test Performed at: [facility] [address] [place] [address] Jenna Medrano MD Blood 05/19/2024 3:20 PM CDT 05/19/2024 3:20 PM CDT us Gela Hoskins MD CHEMISTRY ORDERABLES Final Result [facility] [phone] [facility] [address] [facility] [place] [address] * (ABNORMAL) LIPID PANEL (05/19/2024 3:20 PM CDT) CHOLESTEROL 153 <200 mg/dL [facility] HDL 41(L) > OR = 50 mg/dL [facility] TRIGLYCERIDE 202(H) <150 mg/dL [facility] Comment: If a non-fasting specimen was collected, consider repeat triglyceride testing on a fasting specimen if clinically indicated. Jimena et al. J. of Clin. Lipidol. 2015;9:129-169. LDL CALCULATED 83 mg/dL (calc) [facility] Comment: Reference range: <100 Desirable range <100 mg/dL for primary prevention; <70 mg/dL for patients with CHD or diabetic patients with > or = 2 CHD risk factors. LDL-C is now calculated using the Pepe-Cesar calculation, which is a validated novel method providing better accuracy than the Friedewald equation in the estimation of LDL-C. Pepe SS et al. BASSAM. 2013;310(19): 7233-2668 (http://education.Exabre/faq/XYN713) CHOL/HDL RATIO 3.7 <5.0 (calc) [facility] NON-HDL CHOLESTEROL 112 <130 mg/dL (calc) [facility] Comment: For patients with diabetes plus 1 major ASCVD risk factor, treating to a non-HDL-C goal of <100 mg/dL (LDL-C of <70 mg/dL) is considered a therapeutic option. Test Performed at: [facility] [place] [address] Jenna Medrano MD Blood 05/19/2024 3:20 PM CDT 05/19/2024 3:20 PM CDT Result [facility] Gela Hoskins MD CHEMISTRY ORDERABLES Final Result Performing Organization Address City/[facility]/ZIP Co ak Phone Number [facility] [phone] [facility] [place] [address] * OCCULT BLOOD IMMUNOASSAY, COLORECTAL SCREEN (05/19/2024 12:00 AM CDT) FECAL GLOBIN SEE NOTE [facility] Comment: FECAL GLOBIN BY IMMUNOCHEMISTRY Micro Number: [id number] Test Status: Final Specimen Source: Stool Specimen Quality: Adequate Fecal Globin: Not Detected Test Performed at: [facility] [address] [place] [address] Jenna Medrano Stool STOOL SPECIMEN / Unknown 05/19/2024 05/27/2024 4:36 AM CDT Result [facility] Gela Hoskins MD BODY FLUIDS AND STOOLS Fin al Result Performing Organization Address City/[facility]/ZIP Code Phone Number [facility] [phone] [facility] [address] [place] [address] * MAMMO SCREEN BILAT W OR WO CAD (05/02/2024 3:15 PM CDT) Anatomical Region Laterality Modality Breast Bilateral Mammography Abstract Provider MAMMO ORDERABLES Final Result * HM DIABETES EYE EXAM (04/28/2024 12:07 PM CDT) Barrie Menendez OD HEALTH MAINTENANCE Final R esult [facility] CLIA# [id number] [address] [address] from Last 3 Months or Most Recently Relevant to Health Maintenance Insurance [facility] zhiwo [facility] MEDICAID Care Teams Cnc Machine Operator Relationship Specialty Start Date End Date Gela Hoskins MD [address] [address] PCP - General Family Practice 05/18/24
--- OUTSIDE RECORDS SUMMARY | 2025-05-30 17:34 | XMS_ITS | Encounter Summary ---
Author Organization [facility] Address [address] [place] [address] Care Team Providers Care [employer] Forces Senior Sergeant Name Role Phone Raymond Johnson DO Primary Care Provider +1- [phone] Encounter Details Date Type Department Care Team (Latest Contact Info) Description 08/01/2002 Outpatient Historical [facility] Medicine [address] [address] John Day MD [address] [place] [address] CELLULITIS OF TRUNK (Primary Dx) Social History Tobacco Use Types Packs/Day Years Used Date Smoking Tobacco: Never Assessed Comments Unknown Sex and Gender Information Value Date Recorded Sex Assigned at Not on file Legal Sex Female 4:38 AM BACTERIOLOGY PROFESSOR Gender Identity Not on file Sexual Orientation Not on file documented as of this encounter Plan of Treatment Not on file documented as of this encounter Visit Diagnoses Diagnosis Cellulitis and abscess of trunk- Primary documented in this encounter Care Teams [employer] Senior Sergeant Relationship Specialty Start Date End Date Raymond Johnson DO PCP - General Family Practice 10/21/13 documented as of this encounter
--- OUTSIDE RECORDS SUMMARY | 2025-05-30 17:34 | XMS_ITS | Encounter Summary ---
Author Organization [facility] Address [address] [place] [address] Care Team Providers Care Compound Worker Name Role Phone Raymond Johnson DO Primary Care Provider +1- [phone] Encounter Details Date Type Department Care Team (Latest Contact Info) Description 09/06/2001 Outpatient Historical [address] [address] Erin Pablo MD [address] [place] [address], [address] HYPERTENSION NOS (Primary Dx); MENSTRUAL DISORDER NEC; ABSENCE OF MENSTRUATION Social History Tobacco Use Types Packs/Day Years Used Date Smoking Tobacco: Never Assessed Comments Unknown Sex and Gender Information Value Date Recorded Sex Assigned at Not on file Legal Sex Female 4:38 AM LOG BUYER Gender Identity Not on file Sexual Orientation Not on file documented as of this encounter Plan of Treatment Not on file documented as of this encounter Visit Diagnoses Diagnosis Unspecified essential hypertension- Primary Other disorder of menstruation and other abnormal bleeding from female genital tract Absence of menstruation documented in this encounter Care Teams Compound Worker Relationship Specialty Start Date End Date Raymond Johnson DO PCP - General Family Practice 10/21/13 documented as of this encounter
--- OUTSIDE RECORDS SUMMARY | 2025-05-30 17:34 | XMS_ITS | Clinical Summary ---
Author Organization [facility] Address [address] [place] [address] Phone Care Team Providers Care Oracle Software Engineer Name Role Phone Raymond Johnson DO Primary Care Provider +1- [phone] Allergies Active Allergy Reactions Criticality Noted Date Comments Hydrocodone-Acetaminophen Itching Low 12/28/2009 Latex Itching Low 12/28/2009 Latex Itching 02/08/2015 Medications LISINOPRIL 10 mg Oral Tab Take 10 mg by mouth daily. Active METOPROLOL TARTRATE 50 mg Oral Tab Take 50 mg by mouth daily. Active FLUoxetine (PROZAC) 40 mg capsule Take 40 mg by mouth daily. Active clonazePAM (KLONOPIN) 0.5 mg Tablet Take 0.5 mg by mouth 2 times daily. Active glipiZIDE (GLUCOTROL) 10 mg tablet Take 10 mg by mouth daily with breakfast. Active atorvastatin (LIPITOR) 10 mg tablet Take 10 mg by mouth daily with supper. Active insulin aspart (NOVOLOG FLEXPEN U-100 INSULIN SUBCUT) Inject 10 Units by subcutaneous injection 3 times daily before meals. Active aspirin (BECCA) 325 mg tablet Take 325 mg by mouth daily. Active oxyCODONE-aceta minophen (Percocet) 5-325 mg tabletIndicatio ns:Cellulitis of buttock Take 1 Tablet by mouth every 6 hours as needed for Pain, Moderate. Max Daily Amount: 4 Tablets 2 Tablet 0 Active glipiZIDE (GLUCOTROL) 5 mg tablet Take 5 mg by mouth daily with breakfast. Active metoprolol tartrate (LOPRESSOR) 50 mg tablet Take 50 mg by mouth daily . Active lisinopril (PRINIVIL) 10 mg tablet Take 10 mg by mouth daily. Active traMADol (ULTRAM) 50 mg tablet Take 1 Tab (50 mg) by mouth every 6 hours as needed for Pain. 15 Tab 0 5 Active FLUoxetine (PROzac) 40 mg capsule Take 40 mg by mouth daily. Active clonazePAM (KlonoPIN) 1 mg tablet Take 1 mg by mouth 2 times daily. Active insulin glargine (LANTUS) 100 unit/mL injection Inject 18 Units by subcutaneous injection daily at bedtime. Active ibuprofen (MOTRIN) 800 mg tablet Take 800 mg by mouth every 6 hours as needed for Pain, Mild. Active aspirin (ECOTRIN EC) 325 mg Tablet, Delayed Release (E.C.) Take 325 mg by mouth daily. Active ciprofloxacin HCl (CIPRO) 250 mg tablet Take 3 Tablets (750 mg) by mouth 2 times daily. 20 Tablet 7 Active metroNIDAZOLE (FLAGYL) 500 mg tablet Take 1 Tablet (500 mg) by mouth 5 times daily. 40 Tablet 7 Active oxyCODONE-aceta minophen (PERCOCET) 5-325 mg tabletIndicatio ns:Cellulitis of buttock Take 1 Tablet by mouth every 6 hours as needed for Pain, Moderate. 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 Gender Identity Not on file Sexual Orientation Not on file Last Filed Vital Signs Vital Sign Reading Time Taken Comments Blood Pressure 144/85 04/25/2020 11:05 PM CDT Pulse 77 03/09/2015 6:27 AM CDT Temperature 38.1 C (100.5 F) 04/25/2020 9:48 PM CDT Respiratory Rate 16 04/25/2020 11:05 PM CDT Oxygen Saturation 100% 04/25/2020 11:05 PM CDT Inhaled Oxygen Concentration - - Weight 81.8 kg (180 lb 6.4 oz) 04/25/2020 9:48 P M CDT Height 160 cm (5' 3 ) 04/25/2020 9:48 PM CDT Body Mass Index 31.96 04/25/2020 9:48 PM CDT Plan of Treatment Health Maintenance Due Date Last Done Comments DTAP/TDAP/TD VACCINES (1 - Tdap) 1994 HEPATITIS B VACCINES (1 of 3 - 19+ 3-dose series) 08/29 HPV/Cotest (21-29) 1996 CERVICAL CANCER SCREENING 2005 HPV/Cotest (30-65) 2005 PAP SMEAR 2005 BREAST CANCER SCREENING 2015 COLORECTAL SCREENING 2020 Colorectal Cancer Screening 2020 FIT-DNA Q 3 years 2020 FIT/FOBT Q 1 year 2020 Flex Sig/CT Colonography Q 5 years 2020 INFLUENZA VACCINE (#1) 2025 Care Teams Oracle Software Engineer Relationship Specialty Start Date End Date Raymond Johnson DO PCP - General Family Practice 10/21/13
--- NOTE | 2025-05-30 17:43 | ECG_ITS ---
[facility] Test Date: 2025-05-30 Pat Name: Kari Lindsay Department: Room: Gender: Female Deputy Controller: : 1975 Requested By: Barbara Asif Order Number: [id number] Gabriel MD: Opal Maldonado M.D. Measurements Intervals [place] Rate: 77 P: 31 AK: 145 QRS: 66 QRSD: 93 T: 67 QT: 378 QTc: 429 Interpretive Statements SINUS RHYTHM Compared to ECG 11/18/2023 19:50:39 No significant changes Electronically Signed On 05-30-2025 20:42:21 CDT by Opal Maldonado M.D. [id number]
--- NOTE | 2025-05-30 17:55 | CTR_ITS ---
PROCEDURE INFORMATION: Exam: CT Head Without Contrast Exam date and time: 05/30/2025 6:35 PM Age: 49 years old Clinical indication: Pain; Headache; Migraine; Aura effect not specified; Additional info: Sudden onset severe HEAD TECHNIQUE: Imaging protocol: Computed tomography of the head without contrast. Radiation optimization: All CT scans at this facility use at least one of these dose optimization techniques: automated exposure control; mA and/or kV adjustment per patient size (includes targeted exams where dose is matched to clinical indication); or iterative reconstruction. COMPARISON: CT head wo con* [id number] 09/12/2023 4:10 PM RADIATION DOSE METRICS: Total DLP (mGy-cm): 969.48 FINDINGS: Brain: Normal. No hemorrhage. Unremarkable white matter. No mass effect. Cerebral ventricles: No ventriculomegaly. Paranasal sinuses: Visualized sinuses are unremarkable. No fluid levels. Mastoid air cells: Visualized mastoid air cells are well aerated. Bones: Unremarkable. No acute fracture. Soft tissues: Unremarkable. CT/CT head wo con* [id number] IMPRESSION: No acute intracranial abnormality.
[2025-05-30 18:04] VITALS: BP 114/80
--- NOTE | 2025-05-30 18:06 | ED_ITS ---
HPI - General Adult 2 General: Chief complaint: Headache Stated complaint: HTN Time Seen by Provider: 05/30/25 17:24 History of Present Illness: Patient is a 49-year-old female with past medical history of type 2 diabetes presents with a chief complaint of sudden onset severe headache. She states that she became nauseated, which is not uncommon for her; patient vomited and experienced diarrhea. She states she has chronic abdominal cramping due to diabetes. She states that as she was vomiting, she experienced a sudden onset severe headache that was associated with radiation of pain down her neck and back. She states that she has never had pain like this in her life and does not have a history of headaches. She states the pain has somewhat led up spontaneously and denies any vision changes, focal numbness, weakness, difficulty with coordination. Patient denies chest pain or shortness of breath. No urinary symptoms. Of note, patient measured her high blood pressure at home. Notably, patient states that her uncle from intracranial aneurysm. Related Data Home Medications ?Medication ?Instructions ?Recorded ?Confirmed aspirin 325 mg tablet 325 mg PO QAM 10/31/2005/11 atorvastatin 40 mg tablet (Lipitor) 40 mg PO DAILY 05/11/25 Previous Rx's ?Medication ?Instructions ?Recorded duloxetine 60 mg capsule,delayed 60 mg PO DAILY 30 day s #30 caps 12/15/23 release blood-glucose sensor (Dexcom G6 #3 ea 12/29/24 Sensor device) blood-glucose transmitter (Dexcom #3 ea 12/29/24 G6 Transmitter device) blood-glucose,casting sorter,cont #1 ea 12/29/24 (Dexcom G6 Weave Defect Charting Clerk) insulin lispro 100 unit/mL See Rx Instructions .Route 01/13/25 subcutaneous solution (Humalog .COMPLEX #30 mL U-100 Insulin) Allergies Allergy/AdvReac Type Severity Reaction Status Date / Time hydrocodone Allergy ALGY-Rash Verified 05/11/25 10:34 [facility] ED 2 [facility]: Medical History (Updated 05/30/25 @ 19:22 by Barbara Asif MD) Methamphetamine abuse Diabetes Anxiety and depression IDDM (insulin dependent diabetes mellitus) HTN (hypertension), benign Nicotine dependence, cigarettes, uncomplicated Major depressive disorder, recurrent, in full remission Obsessive-compulsive disorder, unspecified Surgical History History of umbilical hernia repair (11/14/20) History of partial hysterectomy History of laparoscopic cholecystectomy History of appendectomy Social History Smoking and tobacco/nicotine status: never used tobacco/nicotine Quit status (tobacco/nicotine): has tried quititng Number of times tried to quit tobacco: 1 Second hand smoke exposure: Yes Alcohol intake: current Alcohol intake frequency: few times a month Alcohol type: beer Substance/Drug Use: never Adopted: No Caregiver/support person: No Lives independently: No Household members: spouse and other 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, 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, 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: House Marital status: Number of children: 1 Number of grandchildren: 0 Highest education level completed: Some College, No Degree service: No Current occupational status: unemployed Current occupational exposures/hazards: No Pets and animals: Yes Pets & animals: dog(s) Leisure activites: fishing and other Leisure activities details: swim,crafts Sexually active: No Do you think of yourself as: Straight/Heterosexual Current gender identity: Female Luanne/Zoroastrian: Taoism Special luanne needs: No Agree to transfusion: Yes Female Reproductive History: Para: 1 Physical Exam 2 Narrative: EXAM NARRATIVE: Vital signs were reviewed. Patient is alert and oriented. Patient is breathing comfortably, no increased WOB or accessory muscle use. SpO2 is above 95% on RA. No hypotension or tachycardia. Abd is soft, midly tender diffusely which patient states is normal. Patient is moving all extremities, no deformity or gross injury. Neuro: Awake, alert, strength equal bilaterally. No sensory defict. Able to perform FNF, heel to meyers. CRANIAL NERVES: II: Pupils equal and reactive, III, IV, : EOM intact, no gaze preference or deviation, no nystagmus. V: normal sensation in V1, V2, and V3 segments bilaterally VII: no asymmetry, no nasolabial fold flattening VIII: normal hearing to speech IX, X: normal palatal elevation, no uvular deviation XI: 5/5 head turn and 5/5 shoulder shrug bilaterally XII: midline tongue protrusion Course 2 Vital Signs: Vital signs: Vital Signs Temperature 97.8 F 05/30/25 17:25 Pulse Rate 80 05/30/25 17:32 Respiratory Rate 16 05/30/25 17:32 Blood Pressure 114/80 05/30/25 18:04 Pulse Oximetry 99 05/30/25 17:32 Oxygen Delivery Me thod Room Air 05/30/25 17:32 MDM - General Adult Medical Decision Making Patient is a 49-year-old female presenting with a chief complaint of sudden onset headache in the setting of no history of headaches, significant medical history of intracranial aneurysm in the family. Differential diagnose includes, is limited to, ICH, migraine, tension headache, hypertensive emergency, asymptomatic hypertension, other. On exam she is HemoCue stable and nontoxic- appearing and has a nonfocal neurologic exam. Patient was eval lab work including CBC, CMP, troponin, BNP, UA, EKG and CT of her head. CT of her head is negative for acute intracranial bleed. Patient does not have an elevated white blood cell count and is not anemic. Patient does not have any actionable electrolyte abnormalities. We have not collected a urine but patient denies suprapubic pain, increased frequency, dysuria or hematuria, states it does not feel as though she has a urinary tract infection. Her pain was improved but states the headache is starting to come back. I will give her an injection of Compazine before discharge. Otherwise, her presentation is not consistent with hypertensive emergency and she is appropriate for outpatient management at this time. Patient was counseled on supportive care measures at home, given return precautions and discharged in stable condition. Lab Data 05/30/25 18:30 05/30/25 18:[address] 05/30/25 17:55 IMPRESSION: No acute intracranial abnormality. Laboratory Results WBC 9.43 10^3/uL (3.29-11.43) 05/30/25 18:30 RBC 5.33 10^6/uL (3.85-5.65) 05/30/25 18:30 Hgb 15.30 g/dL (11.27-16.99) 05/30/25 18:30 Hct 46.2 % (36-47) 05/30/25 18:30 MCV 86.7 fl (85-98) 05/30/25 18:30 MCH 28.7 pg (27-33) 05/30/25 18: MCHC 33.1 g/dL (30-55) 05/30/25 18:30 RDW 12.6 % (12.1-15.1) 05/30/25 18:30 Plt Count 212 10^3/cmm (157-399) 05/30/25 18: MPV 10.3 fL (7.4-10.4) 05/30/25 18:30 Neut % (Auto) 60.6 % 05/30/25 18:30 Lymph % (Auto) 28.3 % 05/30/25 18:30 Garvin % (Auto) 8.7 % 05/30/25 18:30 Eos % (Auto) 1.1 % 05/30/25 18:30 Baso % (Auto) 0.8 % 05/30/25 18: Neut # (Auto) 5.71 10^3/uL (1.8-7.7) 05/30/25 18: Lymph # (Auto) 2.7 10^3/uL (0.8-4.8) 05/30/25 18: Garvin # (Auto) 0.8 10^3/uL (0.2-0.9) 05/30/25 18:30 Eos # (Auto) 0.1 10^3/uL (0.0-0.8) 05/30/25 18: Baso # (Auto) 0.1 10^3/uL (0.0-0.1) 05/30/25 18: Nucleated RBC % (auto) 0 % 05/30/25 18: Nucleated RBCs # 0.0 /100WBC 05/30/25 18: Sodium 139 mmol/L (136-145) 05/30/25 18: Potassium 4.1 mmol/L (3.5-5.1) 05/30/25 18: Chloride 104 mmol/L (98-107) 05/30/25 18: Carbon Dioxide 24 mmol/L (22-29) 05/30/25 18: Anion Gap 15.1 (5-19) 05/30/25 18: BUN 14 mg/dL (6-20) 05/30/25 18: Creatinine 0.7 mg/dL (0.5-0.9) 05/30/25 18: GFR Calculation 88.9 mL/min (90-130) L 05/30/25 18: Glucose 211 mg/dL (65-115) H 05/30/25 18:30 Calculated Osmolality 295 mOsm/kg (285-295) 05/30/25 18:30 Calcium 9.7 mg/dL (8.5-10.5) 05/30/25 18:30 Total Bilirubin 0.3 mg/dL (0.15-1.2) 05/30/25 18:30 AST 12 U/L (0-32) 05/30/25 18:30 ALT 22 U/L (0-33) 05/30/25 18:30 Alkaline Phosphatase 119 U/L (35-105) H 05/30/25 18:30 Troponin T Baseline < 6 ng/L (0-10) 05/30/25 18:30 NT-Pro-B Natriuret Pep 38 pg/mL (0-125) 05/30/25 18:30 Total Protein 6.9 g/dL (6.6-8.7) 05/30/25 18:30 Albumin 4.2 g/dL (3.5-5.2) 05/30/25 18:30 Globulin 2.7 g/dL (1.3-4.6) 05/30/25 18:30 All radiology interpretation(s) finalized by discharge EKG Data EKG 1: Computer generated interpretation: Head CT 05/30/25 17:55 IMPRESSION: No acute intracranial abnormality. EKG shows normal sinus rhythm with a heart rate of 77, normal axis, normal intervals and no evidence of ST segment elevation. Discharge Plan Discharge Patient Disposition: Home Clinical Impression: Headache Qualifiers: Headache type: unspecified Headache chronicity pattern: acute headache I ntractability: not intractable Qualified Code(s): R51.9 - Headache, unspecified Condition: Stable Prescriptions: No Action atorvastatin [Lipitor] 40 mg tablet 40 mg PO DAILY insulin lispro [Humalog U-100 Insulin] 100 unit/mL solution See Rx Instructions .ROUTE .COMPLEX MDD 80 Qty: 30 3RF Rx Instructions: via insulin pump; 80 units daily duloxetine 60 mg capsule,delayed release(DR/EC) 60 mg PO DAILY 30 Days Qty: 30 3RF (DME) Dexcom G6 Weave Defect Charting Clerk Misc See Rx Instructions .Route Qty: 1 0RF Rx Instructions: As directed (DME) Dexcom G6 Sensor Device See Rx Instructions .Route Qty: 3 3RF Rx Instructions: As directed (DME) Dexcom G6 Transmitter Device See Rx Instructions .Route Qty: 3 0RF Rx Instructions: As directed aspirin 325 mg Tablet 325 mg PO QAM Discharge Orders: Discharge ED (Routine); Ordered 05/30/25 Ordered By: Barbara Asif Referrals: Seble Smith FNP [Primary Care Provider, Family Practice] Patient Instructions: Acute Headache (DC), Opioid Safety, Pain Management, Patient Portal & [place] Instructions Activity Restrictions/Additional Instructions: Please continue to monitor your condition closely at home. Take Ibuprofen 400mg and Tylenol 500-1000mg every six hours for pain and inflammation. If your condition worsens or additional concerns arise, please return promptly to the emergency department for reassessment. Follow up with your primary care doctor in one week. Print Language: Amharic Coding Level of Care Code ED Ship Carpenter for Rosemarie Nation
[2025-05-30 18:37] LABS: Hematocrit 46.2 % (36-47); Hemoglobin 15.30 g/dL (11.27-16.99); Mean Corpuscular HGB Conc 33.1 g/dL (30-55); Mean Corpuscular Hemoglobin 28.7 pg (27-33); Mean Corpuscular Volume 86.7 fl (85-98); Nucleated Red Blood Cells % 0 %; Platelet Count 212 10^3/cmm (157-399); Red Blood Count 5.33 10^6/uL (3.85-5.65); White Blood Count 9.43 10^3/uL (3.29-11.43)
[2025-05-30 18:59] LABS: Troponin(5th) Baseline < 6 ng/L (0-10)
[2025-05-30 19:08] LABS: Alanine Aminotransferase 22 U/L (0-33); Albumin Level 4.2 g/dL (3.5-5.2); Alkaline Phosphatase 119 U/L (35-105); Anion Gap 15.1 (5-19); Aspartate Amino Transferase 12 U/L (0-32); Blood Urea Nitrogen 14 mg/dL (6-20); Calcium 9.7 mg/dL (8.5-10.5); Carbon Dioxide 24 mmol/L (22-29); Chloride 104 mmol/L (98-107); Creatinine Clr Calc Pharmacy 99.7662; Globulin 2.7 g/dL (1.3-4.6); Glucose 211 mg/dL (65-115); NT Pro B Type Natriuretic Pept 38 pg/mL (0-125); Osmolality Calculated 295 mOsm/kg (285-295); Potassium 4.1 mmol/L (3.5-5.1); Sodium 139 mmol/L (136-145); Total Protein 6.9 g/dL (6.6-8.7)
[2025-05-30 19:37] VITALS: BP 141/98; PULSE 82; O2SAT 100
== END 2025-05-30 19:41 | disposition home or self-care (01) ==
PROVIDERS: Emergency Provider Emergency Medicine; PCP Nurse Practitioner Family
DX: R51.9 Headache, unspecified (principal); Z79.4 Long term (current) use of insulin; Z79.82 Long term (current) use of aspirin; Z87.891 Personal history of nicotine dependence; E11.9 Type 2 diabetes mellitus without complications; I10 Essential (primary) hypertension
CPT/HCPCS: 36415; 70450; 80053; 83880; 84484; 85025; 93005; 99284

== ENCOUNTER 2025-06-16 08:34 | Outpatient (CLI) | payer BC, MEDICAID, SELFPAY ==
[2025-06-12 09:02] VITALS: BP 149/93; BMI 33.5
--- NOTE | 2025-06-16 08:40 | XR_ITS ---
WS: [id number] XR shoulder RT min 2V* [id number] REASON FOR EXAM: M25.511 - Pain in right shoulder FINDINGS: No fracture or focal bone lesion. Acromioclavicular joint space is intact and well preserved with minimal subchondral sclerosis and osteophytosis. The glenohumeral joint space is not well depicted. There may be mild narrowing. There is mild to moderate subchondral sclerosis of the glenoid. There is mild osteophytosis of the humeral head. There is significant sclerosis and cystic change within the greater tuberosity. 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 Osteoarthritis of the gl enohumeral joint of uncertain severity likely mild to moderate. Significant rotator cuff tendon arthropathy.
== END 2025-06-16 08:35 | disposition home or self-care (01) ==
LOC: RAD 08:36
PROVIDERS: PCP Nurse Practitioner Family; Visit Provider Nurse Practitioner Family
DX: M25.511 Pain in right shoulder (principal); M19.011 Primary osteoarthritis, right shoulder; M85.611 Other cyst of bone, right shoulder
CPT/HCPCS: 73030

== ENCOUNTER 2025-08-10 10:37 | Outpatient (CLI) | payer BC, MEDICAID, SELFPAY ==
[2025-06-12 09:02] VITALS: BP 149/93; BMI 33.5
--- NOTE | 2025-08-10 11:30 | USCV_ITS ---
Kari Lindsay Age: 49 Gender: F : 1975 Exam Date: 08/10/2025 11:11 Ordering Phys: Seble Smith Technologist: [place] [facility] [place]: rt leg pain and swelling PROCEDURES: Venous duplex imaging was performed in only the right lower extremity. The following venous structures were evaluated: common femoral vein, profunda vein, proximal portion of the greater saphenous vein, superficial femoral vein, and the popliteal vein. In addition, the posterior tibial and peroneal trunk were evaluated. FINDINGS: Normal 2-D Doppler and augmentation and compressibility throughout the lower extremity venous structures. Additional imaging through the proximal calf veins also reveals no thrombus. Limited evaluation of the greater saphenous vein is patent with no thrombus. CONCLUSIONS No DVT right lower extremity. Dr. eBe Gayle DO (Electronically Signed) Final Date: 10 August 2025 15:19 S
== END 2025-08-10 10:38 | disposition home or self-care (01) ==
LOC: RAD 10:38
PROVIDERS: PCP Nurse Practitioner Family; Visit Provider Nurse Practitioner Family
DX: M79.89 Other specified soft tissue disorders (principal); M79.604 Pain in right leg
CPT/HCPCS: 36415; 85378; 93971